=== PATIENT | female | born 1935 | race Caucasian/White ===

== ENCOUNTER → 2017-12-14 | Outpatient (CLI) | payer OTHER | END | disposition home or self-care (01) | LOC: SHCH 09:16 | PROVIDERS: ATTEND Internal Medicine Cardiovascular Disease | DX: I35.1 Nonrheumatic aortic (valve) insufficiency (principal) | CPT/HCPCS: 93306 ==

== ENCOUNTER 2018-08-27 02:58 | Inpatient (IN) | payer OTHER | END 2018-09-08 17:22 | LOC: EDH 02:58 → 2CH 08-28 07:50 → 2DH 09-04 18:37 → EDHIP 05:12 → 2BH 08-28 12:05 → 2DH 13:44 | PROC: 5A1955Z Respiratory Ventilation, Greater than 96 Consecutive Hours (ICD-10-PCS; principal; ~2018-08-27) | PROC: 0BH17EZ Insertion of Endotracheal Airway into Trachea, Via Natural or Artificial Opening (ICD-10-PCS; ~2018-08-27) | DX: A41.9 Sepsis, unspecified organism (principal); R65.21 Severe sepsis with septic shock; J12.1 Respiratory syncytial virus pneumonia; J96.21 Acute and chronic respiratory failure with hypoxia; J96.22 Acute and chronic respiratory failure with hypercapnia; I50.43 Acute on chronic combined systolic (congestive) and diastolic (congestive) heart failure; J44.1 Chronic obstructive pulmonary disease with (acute) exacerbation; E87.2 Acidosis; Z99.11 Dependence on respirator [ventilator] status; J44.0 Chronic obstructive pulmonary disease with (acute) lower respiratory infection; I47.2 Ventricular tachycardia; I13.0 Hypertensive heart and chronic kidney disease with heart failure and stage 1 through stage 4 chronic kidney disease, or unspecified chronic kidney disease; R06.03 Acute respiratory distress; R53.81 Other malaise; I48.91 Unspecified atrial fibrillation; I25.10 Atherosclerotic heart disease of native coronary artery without angina pectoris ==

== ENCOUNTER 2018-11-08 13:35 | Inpatient (IN) | payer OTHER ==
[~2018-11-08] VITALS: Ht 160 cm; Wt 46.5 kg
[~2018-11-08 13:35] MED LIST: APIX2.5T PO; BUDE0.5A3 IH; CARV3.1262 PO; CEPH500C2 PO; CILO100T PO; FURO20TA6 PO; IPRA3AMP24 IH; LEVO75 PO; LISI-617 PO; MINE60OI TP; PRED20B PO; SENN8.6T32 NG; THEO400T3 PO
[2018-11-08] MEDS ORDERED: IPRATROPIUM/ALBUTEROL SULFATE 3 ML SOLUTION IH ONE ×2 (13:40→15:24)
[2018-11-08 13:51] LABS: ABG BASE EXCESS -1.4 mmol/L (-2.0-3.0); ABG HCO3 21.6 mmol/L (21.0-28.0); ABG OXYGEN SATURATION 97.6 % (95.0-99.0); ABG PCO2 32 mmHg (32-45)
[2018-11-08 14:09] LABS: BASOPHILS % (AUTO) 0.9 % (0.0-5.0); CREATININE 0.9 mg/dL (0.5-1.5); EOSINOPHILS % (AUTO) 0.1 % (0.0-8.0); HEMATOCRIT 44.4 % (36-48); LYMPHOCYTES % (AUTO) 7.9 % (21.0-51.0); MEAN CORPUSCULAR HEMOGLOBIN 30.5 pg (27.0-33.0); MEAN CORPUSCULAR HGB CONC 32.3 g/dL (32.0-36.0); MEAN CORPUSCULAR VOLUME 94.5 fL (79-99); MONOCYTES % (AUTO) 7.8 % (3.0-13.0); NEUTROPHILS % (AUTO) 83.3 % (40.0-77.0); NUCLEATED RED BLOOD CELLS 0.1 % (0.0-0.19); PLATELET COUNT (AUTO) 230 K/uL (130-400); POTASSIUM 3.7 mmol/L (3.5-5.1); RED CELL DISTRIBUTION WIDTH 16.5 % (11.0-15.5); WHITE BLOOD COUNT (AUTO) 11.6 K/uL (4.8-10.8)
[2018-11-08 14:19] LABS: ALBUMIN 2.7 g/dL (3.5-5.0); BILIRUBIN,TOTAL 0.7 mg/dL (0.2-1.0); TOTAL PROTEIN, SERUM 6.8 g/dL (6.0-8.3)
[2018-11-08 14:24] LABS: INR 1.12 (0.85-1.15); PARTIAL THROMBOPLASTIN TIME 34.6 SEC (26.3-35.5); PROTHROMBIN TIME 11.7 SEC (9.6-11.6)
[2018-11-08] MEDS ORDERED: DILTIAZEM HCL 125 MG/25 ML VIAL IV ONE (15:17)
[2018-11-08] MEDS ORDERED: METHYLPREDNISOLONE SOD SUCC 125MG/2ML VIAL ONE (15:20)
[2018-11-08] MEDS ORDERED: LEVOFLOXACIN 500 MG/D5W 100 ML 100 ML IV SCH (17:15)
[2018-11-08] MEDS ORDERED: LACTULOSE 20 GM/30 ML UDCUP PO PRN (17:15)
[2018-11-08] MEDS ORDERED: ACETAMINOPHEN 325 MG TAB PO PRN (17:15)
[2018-11-08] MEDS ORDERED: HYDRALAZINE HCL 20 MG/ML VIAL IV PRN (17:15)
[2018-11-08] MEDS ORDERED: ONDANSETRON HCL 4 MG/2 ML VIAL IV PRN (17:15)
[2018-11-08] MEDS: METHYLPREDNISOLONE SOD SUCC 125MG/2ML VIAL IV SCH (17:15)
[2018-11-08] MEDS ORDERED: DILTIAZEM HCL 125 MG/25 ML 125 MG in SODIUM CHLORIDE 0.9% 100 ML IV SCH (17:15)
[2018-11-08 17:35] LABS: MAGNESIUM 1.8 mg/dL (1.80-2.40); PHOSPHORUS 4.5 mg/dL (2.5-4.9)
[2018-11-08 17:46] LABS: HEMOGLOBIN A1C 5.9 % (4.0-6.0)
[2018-11-08] MEDS: SODIUM CHLORIDE 3% FOR INHALATION 4 ML/AMP VIAL.NEB IH SCH ×2 (19:08→23:14)
[2018-11-08] MEDS ORDERED: LEVOFLOXACIN 500 MG/D5W 100 ML 100 ML ONE (19:34)
[2018-11-08] MEDS ORDERED: FAMOTIDINE/PF 20 MG/2 ML VIAL IV SCH (21:00)
[2018-11-08] MEDS: METOPROLOL TARTRATE 25 MG TAB PO SCH (22:03)
[2018-11-08 23:00] VITALS: BP_SYST 157; BP_SYST 98; BP_DIAS 60; BP_DIAS 85
[2018-11-08 23:16] VITALS: BP 102/59
[2018-11-09] MEDS: METHYLPREDNISOLONE SOD SUCC 125MG/2ML VIAL IV SCH (01:31)
[2018-11-09] MEDS ORDERED: POTA20TA82 PO (02:30)
[2018-11-09] MEDS ORDERED: CARAL PO (02:31)
[2018-11-09] MEDS ORDERED: MELA1TAB17 PO (02:43)
[2018-11-09] MEDS ORDERED: TYL3 PO (02:45)
[2018-11-09] MEDS ORDERED: LACT10SO9 PO (02:51)
[2018-11-09] MEDS ORDERED: SPIR25TA6 PO (02:51)
[2018-11-09] MEDS ORDERED: ASCO500T10 PO (02:51)
[2018-11-09] MEDS ORDERED: ZINC220 PO (02:51)
[2018-11-09] MEDS ORDERED: SENN8.6T32 PO (02:51)
[2018-11-09] MEDS ORDERED: ACET325C5 PO (02:51)
[2018-11-09] MEDS ORDERED: LEVO500T2 PO (02:53)
[2018-11-09] MEDS ORDERED: ONDA8TAB5 PO (02:53)
[2018-11-09] MEDS ORDERED: ALBUHFA IH (02:55)
[2018-11-09 03:00] VITALS: BP 87/59
[2018-11-09] MEDS ORDERED: IPRATROPIUM/ALBUTEROL SULFATE 3 ML SOLUTION IH ONE ×3 (06:27→12:30)
[2018-11-09] MEDS: SODIUM CHLORIDE 3% FOR INHALATION 4 ML/AMP VIAL.NEB IH SCH (06:29)
[2018-11-09 07:43] VITALS: BP 101/61
[2018-11-09] MEDS ORDERED: LEVOFLOXACIN 500 MG/D5W 100 ML 100 ML IV SCH (09:00)
[2018-11-09] MEDS ORDERED: ENOXAPARIN SODIUM 40 MG/0.4 ML SYRINGE SQ SCH (09:00)
[2018-11-09] MEDS: METOPROLOL TARTRATE 25 MG TAB PO SCH ×2 (09:25→20:58)
[2018-11-09] MEDS: FAMOTIDINE 20MG TAB 20 MG TAB PO SCH ×2 (09:25→20:59)
--- NOTE | 2018-11-09 10:45 | NUR ---
DYSPHAGIA EVAL COMPLETED. -S/S OF ASPIRATION. RECOMMEND MECHANICAL SOFT/ CHOPPED, THIN LIQUIDS; PILLS WHOLE WITH LIQUIDS. PATIENT INFORMATION: Pt IS AN 83 YEAR OLD FEMALE REFERRED FOR A BEDSIDE DYSPHAGIA EVAL SECONDARY TO HISTORY OF DYSPHAGIA. Pt COOPERATIVE DURING THE EVALUATION. ELECTRICAL ENGINEERING TECHNICIAN UTILIZED Power OLEDs BOARD SECONDARY TO SEVERELY IMPAIRED HEARING ABILITY. Pt CURRENTLY ADMITTED SECONDARY TO ACCURACY COPD EXACERBATION. 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 MBSS ON 09/06 WITH RECOMMENDATIONS OF HONEY-THICK LIQUIDS. Pt REPORTS SHE PARTICIPATED IN THERAPY AT A LOCAL SNIFF AND WAS ABLE TO RETURN TO THIN LIQUIDS. 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 RECOMMENDATIONS: 1. MECHANICAL SOFT/CHOPPED, THIN LIQUIDS; PILLS WHOLE WITH LIQUIDS. 2. COMPENSATORY STRATEGIES: *SEATED AT 90 DEGREES *SLOW RATE *NO STRAW G-CODES SWALLOWING: [id number] Addendum: 11/09/18 at [address] Amended: Links added.
[2018-11-09 11:38] VITALS: BP 126/51
[2018-11-09] MEDS ORDERED: SODIUM CHLORIDE 3% FOR INHALATION 4 ML/AMP VIAL.NEB IH SCH (12:00)
[2018-11-09] MEDS: IPRATROPIUM/ALBUTEROL SULFATE 3 ML SOLUTION IH SCH ×3 (13:21→21:33)
[2018-11-09] MEDS ORDERED: METHYLPREDNISOLONE SOD SUCC 125MG/2ML VIAL IV SCH (14:00)
--- NOTE | 2018-11-09 14:07 | NUR ---
DC PLAN VISITED WITH PATIENT. PATIENT HEARD OF HEARING USES A WHITE BOARD. SPOKE TO PATIENT GOT MARK FOR [facility] D[facility] TO GO BACK. PATIENT GIVEN BPCI INFO. Addendum: 11/09/18 at 1408 by LALIT JAY RN CM Amended: Links added.
[2018-11-09] MEDS: METHYLPREDNISOLONE SOD SUCC 40MG/ML 1ML IVP SCH ×2 (14:46→21:01)
[2018-11-09 16:19] VITALS: BP 128/60
[2018-11-09 19:00] VITALS: BP 99/66
--- NOTE | 2018-11-09 19:30 | NUR ---
Received bedside report ,unable to collect sputum and urine specimen.Pt. is a Chronic afib
[2018-11-09 22:26] LABS: APPEARANCE,URINE Clear (CLEAR); BILIRUBIN,URINE Negative (NEGATIVE); COLOR,URINE Yellow (YELLOW); GLUCOSE, URINE (UA) Negative (NEGATIVE); KETONES,URINE Negative (NEGATIVE); LEUKOCYTE ESTERASE ,URINE Negative (NEGATIVE); NITRATE,URINE Negative (NEGATIVE); OCCULT BLOOD,URINE Negative (NEGATIVE); PROTEIN,URINE Negative (NEGATIVE); UROBILINOGEN,URINE 0.2 mg/dL (0.2-1.0)
[2018-11-09 23:00] VITALS: BP_SYST 111; BP_SYST 138; BP_DIAS 64; BP_DIAS 85
[2018-11-10] MEDS: IPRATROPIUM/ALBUTEROL SULFATE 3 ML SOLUTION IH SCH ×6 (01:52→21:45)
[2018-11-10 03:00] VITALS: BP 103/60
--- NOTE | 2018-11-10 03:18 | NUR ---
Pt. c/o severe leg pain,she said plain tylenol was not working.GHOST WRITER [facility] was called and notified received order to give Tylenol # 3 1 tab p.o TID as taken from her home meds.
[2018-11-10] MEDS ORDERED: ACETAMINOPHEN-CODEINE 300/30MG TAB ONE (03:29)
[2018-11-10] MEDS: METHYLPREDNISOLONE SOD SUCC 40MG/ML 1ML IVP SCH ×3 (05:31→21:08)
[2018-11-10 07:31] VITALS: BP 107/56
[2018-11-10] MEDS ORDERED: LACTULOSE 20 GM/30 ML UDCUP PO PRN (08:15)
[2018-11-10] MEDS ORDERED: ACETAMINOPHEN 325 MG TAB PO PRN (08:15)
[2018-11-10] MEDS ORDERED: ACETAMINOPHEN-CODEINE 300/30MG TAB PO SCH (09:00)
[2018-11-10] MEDS: ZINC SULFATE 220 CAPSULE PO SCH (09:00)
[2018-11-10] MEDS: METOPROLOL TARTRATE 25 MG TAB PO SCH ×2 (09:30→21:09)
[2018-11-10] MEDS: APIXABAN 2.5 MG TABLET PO SCH ×2 (09:35→21:08)
[2018-11-10] MEDS: SPIRONOLACTONE 25 MG TAB PO SCH (09:35)
[2018-11-10] MEDS: SENNOSIDES 8.6 MG TABLET PO SCH (09:35)
[2018-11-10] MEDS: ASCORBIC ACID 500 MG TAB PO SCH ×2 (09:36→21:08)
[2018-11-10] MEDS: ONDANSETRON ODT 4 MG TAB PO SCH ×3 (09:36→21:08)
[2018-11-10] MEDS: FAMOTIDINE 20MG TAB 20 MG TAB PO SCH ×2 (09:36→21:09)
[2018-11-10] MEDS: LEVOFLOXACIN 500 MG TABLET PO SCH (09:37)
[2018-11-10] MEDS: FUROSEMIDE 20 MG TABLET PO SCH (09:37)
[2018-11-10] MEDS: POTASSIUM CHLORIDE 20 MEQ ERTAB PO SCH (09:38)
[2018-11-10] MEDS ORDERED: IPRATROPIUM/ALBUTEROL SULFATE 3 ML SOLUTION IH SCH (10:00)
--- NOTE | 2018-11-10 11:05 | NUR ---
FOLLOW-UP COMPLETED. PT TOLERATING CURRENT DIET AND ABLE TO TAKE SMALL PILLS WHOLE AND LARGE PILLS CRUSHED WITH APPLESAUCE. RECOMMEND CONTINUED P.O. OF MECHANICAL SOFT/CHOPPED, THIN LIQUIDS WITH PILLS CRUSHED. Addendum: 11/10/18 at 1106 by AMERICO ACEVEDO, [facility] Amended: Links added.
[2018-11-10 11:09] VITALS: BP 115/48
[2018-11-10] MEDS: SUCRALFATE 1 GM/10 ML PO SCH ×2 (11:30→18:07)
[2018-11-10] MEDS ORDERED: METHYLPREDNISOLONE SOD SUCC 40MG/ML 1ML IVP SCH (12:45)
--- NOTE | 2018-11-10 12:48 | NUR ---
DC PLAN SENT UPDATES TO FACILITY AND INSURANCE. NEW SNF REFERRAL. Addendum: 11/10/18 at 1249 by LALIT JAY RN CM Amended: Links added.
[2018-11-10 14:40] LABS: ABG BASE EXCESS 0.6 mmol/L (-2.0-3.0); ABG HCO3 25.3 mmol/L (21.0-28.0); ABG OXYGEN SATURATION 98.9 % (95.0-99.0); ABG PCO2 41 mmHg (32-45)
[2018-11-10 15:53] VITALS: BP 132/82
[2018-11-10] MEDS: BUDESONIDE 0.5 MG/2 ML INH IH SCH (17:40)
[2018-11-10 20:09] VITALS: BP 117/65
[2018-11-10] MEDS: MELATONIN PO SCH (21:00)
[2018-11-10] MEDS: PYRIDOXINE HCL PO SCH (21:00)
[2018-11-11 00:11] VITALS: BP 120/58
[2018-11-11] MEDS: IPRATROPIUM/ALBUTEROL SULFATE 3 ML SOLUTION IH SCH ×4 (01:28→14:12)
[2018-11-11 03:53] LABS: BASOPHILS % (AUTO) 0.2 % (0.0-5.0); HEMATOCRIT 41.4 % (36-48); LYMPHOCYTES % (AUTO) 5.6 % (21.0-51.0); MEAN CORPUSCULAR HEMOGLOBIN 31.5 pg (27.0-33.0); MEAN CORPUSCULAR HGB CONC 33.8 g/dL (32.0-36.0); MEAN CORPUSCULAR VOLUME 93.4 fL (79-99); MONOCYTES % (AUTO) 8.9 % (3.0-13.0); NEUTROPHILS % (AUTO) 85.3 % (40.0-77.0); PLATELET COUNT (AUTO) 198 K/uL (130-400); RED BLOOD CELL COUNT(AUTO) 4.44 MIL/uL (4.00-5.50); RED CELL DISTRIBUTION WIDTH 15.8 % (11.0-15.5); WHITE BLOOD COUNT (AUTO) 12.6 K/uL (4.8-10.8)
[2018-11-11 04:09] VITALS: BP 107/64
[2018-11-11 04:18] LABS: CREATININE 1.3 mg/dL (0.5-1.5); MAGNESIUM 2.3 mg/dL (1.80-2.40); PHOSPHORUS 4.1 mg/dL (2.5-4.9); POTASSIUM 5.9 mmol/L (3.5-5.1)
[2018-11-11 04:50] LABS: B-TYPE NATRIURETIC PEPTIDE 168 pg/mL (0-100)
[2018-11-11] MEDS ORDERED: LEVOTHYROXINE 75 MCG TABLET ONE (06:07)
[2018-11-11] MEDS: LEVOTHYROXINE 75 MCG TABLET PO SCH (06:11)
[2018-11-11] MEDS: METHYLPREDNISOLONE SOD SUCC 40MG/ML 1ML IVP SCH ×3 (06:12→21:16)
[2018-11-11] MEDS: SUCRALFATE 1 GM/10 ML PO SCH ×3 (06:12→17:33)
[2018-11-11] MEDS: BUDESONIDE 0.5 MG/2 ML INH IH SCH ×2 (06:26→18:13)
[2018-11-11 07:13] VITALS: BP 137/64
[2018-11-11] MEDS: POTASSIUM CHLORIDE 20 MEQ ERTAB PO SCH (07:26)
[2018-11-11] MEDS: ASCORBIC ACID 500 MG TAB PO SCH ×2 (07:26→21:16)
[2018-11-11] MEDS: SENNOSIDES 8.6 MG TABLET PO SCH (07:26)
[2018-11-11] MEDS: FAMOTIDINE 20MG TAB 20 MG TAB PO SCH ×2 (07:26→21:16)
[2018-11-11] MEDS: LEVOFLOXACIN 500 MG TABLET PO SCH (07:26)
[2018-11-11] MEDS: SPIRONOLACTONE 25 MG TAB PO SCH (07:26)
[2018-11-11] MEDS: APIXABAN 2.5 MG TABLET PO SCH ×2 (07:26→21:16)
[2018-11-11] MEDS: ONDANSETRON ODT 4 MG TAB PO SCH ×3 (07:27→21:19)
[2018-11-11] MEDS: METOPROLOL TARTRATE 25 MG TAB PO SCH ×2 (07:27→21:16)
[2018-11-11] MEDS: ZINC SULFATE 220 CAPSULE PO SCH (07:27)
[2018-11-11] MEDS: FUROSEMIDE 20 MG TABLET PO SCH (07:27)
--- NOTE | 2018-11-11 08:00 | NUR ---
ASSESSMENT PT IS AAOX4 DENIES CP DENIES SOB AT REST. DENIES NV. NO COMPLAINTS VERBALIZED AT THIS TIME. WE COMMUNICATE WITH ERASE BOARD WHEN SHE CANNOT HEAR. CALL LIGHT WITHIN REACH.
[2018-11-11 11:08] VITALS: BP_SYST 109; BP_SYST 97; BP_DIAS 50; BP_DIAS 53
--- NOTE | 2018-11-11 13:31 | NUR ---
DYSPHAGIA FOLLOW-UP COMPLETE. PATIENT WAS SEEN AT BEDSIDE. PATIENT ALERT AND COOPERATIVE. PATIENT WITH SEVERE HEARING LOSS, BILATERALLY, REQUIRES COMMUNICATION PARTNER TO WRITE MESSAGES ON WHITE BOARD. PATIENT TOLERATING RECOMMENDED DIET: MECHANICAL SOFT CHOPPED WITH THIN LIQUIDS, WELL. NO S/S OF ASPIRATION/PENETRATION OBSERVED DURING MEAL CONSUMPTION. RECOMMENDED FOR PATIENT TO CONTINUE WITH MODIFIED DYSPHAGIA DIET. SITE SAFETY REPRESENTATIVE WILL CONTINUE TO FOLLOW-UP WITH PATIENT. Addendum: 11/11/[address] ANUPAM SALAZAR Amended: Links added.
[2018-11-11] MEDS ORDERED: DOXYCYCLINE 100MG+NS 250ML 250 ML IV SCH (15:15)
--- NOTE | 2018-11-11 17:00 | NUR ---
DR COULTER ROUNDED SAW PATIENT ORDERS RECEIVED CT SCAN DONE
[2018-11-11] MEDS: CEFEPIME HCL 1 GM VIAL IVP SCH ×2 (17:32→23:12)
[2018-11-11] MEDS: IPRATROPIUM 0.5 MG/2.5 ML INH IH SCH ×2 (18:13→21:53)
[2018-11-11 20:08] VITALS: BP 115/59
[2018-11-11] MEDS: MELATONIN PO SCH (21:00)
[2018-11-11] MEDS: PYRIDOXINE HCL PO SCH (21:00)
[2018-11-11] MEDS: OSELTAMIVIR PHOSPHATE 75 MG CAP PO SCH (21:16)
[2018-11-12] VITALS (7 sets, daily range): BP systolic 112–141; BP diastolic 55–77
[2018-11-12] MEDS: IPRATROPIUM 0.5 MG/2.5 ML INH IH SCH ×6 (02:09→22:41)
--- NOTE | 2018-11-12 03:57 | NUR ---
PATIENT IS REFUSING TO LET GEM SETTER DRAW MORNING LAB WORK.
[2018-11-12 04:19] LABS: ABG BASE EXCESS 3.4 mmol/L (-2.0-3.0); ABG HCO3 29.3 mmol/L (21.0-28.0); ABG OXYGEN SATURATION 99.1 % (95.0-99.0); ABG PCO2 49 mmHg (32-45)
[2018-11-12] MEDS: LEVOTHYROXINE 75 MCG TABLET PO SCH (05:37)
[2018-11-12] MEDS: METHYLPREDNISOLONE SOD SUCC 40MG/ML 1ML IVP SCH (05:37)
[2018-11-12] MEDS: SUCRALFATE 1 GM/10 ML PO SCH ×3 (05:38→16:31)
[2018-11-12] MEDS: CEFEPIME HCL 1 GM VIAL IVP SCH ×2 (05:38→13:38)
[2018-11-12] MEDS: BUDESONIDE 0.5 MG/2 ML INH IH SCH ×2 (06:18→18:40)
[2018-11-12] MEDS: FUROSEMIDE 20 MG TABLET PO SCH (07:22)
[2018-11-12] MEDS: METOPROLOL TARTRATE 25 MG TAB PO SCH ×2 (07:22→20:44)
[2018-11-12] MEDS: ASCORBIC ACID 500 MG TAB PO SCH ×2 (07:22→20:43)
[2018-11-12] MEDS: SENNOSIDES 8.6 MG TABLET PO SCH (07:22)
[2018-11-12] MEDS: APIXABAN 2.5 MG TABLET PO SCH ×2 (07:23→20:43)
[2018-11-12] MEDS: FAMOTIDINE 20MG TAB 20 MG TAB PO SCH ×2 (07:23→20:43)
[2018-11-12] MEDS: ONDANSETRON ODT 4 MG TAB PO SCH ×3 (07:23→20:47)
[2018-11-12] MEDS: ZINC SULFATE 220 CAPSULE PO SCH (07:23)
[2018-11-12] MEDS: OSELTAMIVIR PHOSPHATE 75 MG CAP PO SCH ×2 (07:23→20:43)
--- NOTE | 2018-11-12 08:00 | NUR ---
ASSESSMENT PT IS AAOX3 DENIES CP DENIES SOB DENIES NV NO COMPLAINTS. SITTING UPRIGHT IN BED. CALL LIGHT WITHIN REACH, AM MEDS GIVEN AND TOLERATED. DOOR AJAR BLINDS OPEN.
[2018-11-12 10:07] LABS: BASOPHILS % (AUTO) 0.1 % (0.0-5.0); LYMPHOCYTES % (AUTO) 7.1 % (21.0-51.0); MEAN CORPUSCULAR HEMOGLOBIN 31.1 pg (27.0-33.0); MEAN CORPUSCULAR HGB CONC 32.9 g/dL (32.0-36.0); MEAN CORPUSCULAR VOLUME 94.5 fL (79-99); MONOCYTES % (AUTO) 3.8 % (3.0-13.0); PLATELET COUNT (AUTO) 214 K/uL (130-400); RED BLOOD CELL COUNT(AUTO) 4.97 MIL/uL (4.00-5.50); RED CELL DISTRIBUTION WIDTH 16.2 % (11.0-15.5); WHITE BLOOD COUNT (AUTO) 10.4 K/uL (4.8-10.8)
[2018-11-12 10:13] LABS: INR 1.07 (0.85-1.15); PARTIAL THROMBOPLASTIN TIME 37.2 SEC (26.3-35.5); PROTHROMBIN TIME 11.2 SEC (9.6-11.6)
[2018-11-12 10:28] LABS: ALBUMIN 2.6 g/dL (3.5-5.0); BILIRUBIN,TOTAL 0.7 mg/dL (0.2-1.0); CREATININE 1.1 mg/dL (0.5-1.5); MAGNESIUM 2.3 mg/dL (1.80-2.40); PHOSPHORUS 3.8 mg/dL (2.5-4.9); POTASSIUM 4.5 mmol/L (3.5-5.1); TOTAL PROTEIN, SERUM 6.7 g/dL (6.0-8.3)
--- NOTE | 2018-11-12 10:30 | NUR ---
HUGH CRUZ PRODUCT DEVELOPMENT CARPENTER ROUNDED ORDERS RECEIVED
[2018-11-12] MEDS ORDERED: METHYLPREDNISOLONE SOD SUCC 40MG/ML 1ML IVP SCH (14:00)
--- NOTE | 2018-11-12 15:30 | NUR ---
DR COULTER ROUNDED AWARE THAT PT REFUSED RECHECK LACTIC ACID.
[2018-11-12] MEDS: PYRIDOXINE HCL PO SCH (19:28)
[2018-11-12] MEDS: MELATONIN PO SCH (19:28)
[2018-11-12] MEDS ORDERED: DOXYCYCLINE HYCLATE 100 MG TABLET PO SCH (21:00)
[2018-11-12] MEDS: ACETAMINOPHEN-CODEINE 300/30MG TAB PO PRN (23:57)
[2018-11-13] MEDS: IPRATROPIUM 0.5 MG/2.5 ML INH IH SCH ×4 (01:58→13:37)
[2018-11-13 03:44] LABS: BASOPHILS % (AUTO) 0.1 % (0.0-5.0); HEMATOCRIT 42.6 % (36-48); LYMPHOCYTES % (AUTO) 14.2 % (21.0-51.0); MEAN CORPUSCULAR HEMOGLOBIN 31.4 pg (27.0-33.0); MEAN CORPUSCULAR HGB CONC 33.5 g/dL (32.0-36.0); MEAN CORPUSCULAR VOLUME 93.9 fL (79-99); MONOCYTES % (AUTO) 7.4 % (3.0-13.0); NEUTROPHILS % (AUTO) 78.3 % (40.0-77.0); NUCLEATED RED BLOOD CELLS 0.1 % (0.0-0.19); PLATELET COUNT (AUTO) 150 K/uL (130-400); RED BLOOD CELL COUNT(AUTO) 4.54 MIL/uL (4.00-5.50); RED CELL DISTRIBUTION WIDTH 15.8 % (11.0-15.5); WHITE BLOOD COUNT (AUTO) 6.8 K/uL (4.8-10.8)
[2018-11-13 04:00] VITALS: BP 127/72
[2018-11-13 04:21] LABS: POTASSIUM 4.6 mmol/L (3.5-5.1)
[2018-11-13] MEDS: LEVOTHYROXINE 75 MCG TABLET PO SCH (05:59)
[2018-11-13] MEDS: SUCRALFATE 1 GM/10 ML PO SCH ×2 (05:59→12:22)
[2018-11-13] MEDS: BUDESONIDE 0.5 MG/2 ML INH IH SCH (06:34)
[2018-11-13 07:37] VITALS: BP 136/79
[2018-11-13] MEDS ORDERED: PREDNISONE 20 MG TABLET PO SCH (09:00)
[2018-11-13] MEDS: SENNOSIDES 8.6 MG TABLET PO SCH (09:11)
[2018-11-13] MEDS: ASCORBIC ACID 500 MG TAB PO SCH (09:11)
[2018-11-13] MEDS: METOPROLOL TARTRATE 25 MG TAB PO SCH (09:11)
[2018-11-13] MEDS: ONDANSETRON ODT 4 MG TAB PO SCH ×2 (09:11→13:55)
[2018-11-13] MEDS: APIXABAN 2.5 MG TABLET PO SCH (09:11)
[2018-11-13] MEDS: OSELTAMIVIR PHOSPHATE 75 MG CAP PO SCH (09:12)
[2018-11-13] MEDS: FAMOTIDINE 20MG TAB 20 MG TAB PO SCH (09:12)
[2018-11-13] MEDS: FUROSEMIDE 20 MG TABLET PO SCH (09:12)
[2018-11-13] MEDS: ACETAMINOPHEN-CODEINE 300/30MG TAB PO PRN (09:22)
--- NOTE | 2018-11-13 09:30 | NUR ---
GIVEN SCHEDULED MEDS---PT PREFERRED TO HAVE THEM CRUSHED. INFORMED PT THAT SPEECH THERAPIST ORDERED TO HAVE PILLS WHOLE AND WITH THIN LIQUIDS. CONTINUES TO REQUEST MEDS CRUSHED. DONE AND TOLERATED WELL.
[2018-11-13 11:29] VITALS: BP 111/57
--- NOTE | 2018-11-13 15:30 | NUR ---
FAXED PAPERWORK TO [facility] ( [phone]) AND SPOKE WITH HAFSA--SHE STATED NURSE WILL BE CALLING ME BACK FOR REPORT.
[2018-11-13 15:32] VITALS: BP 142/87
--- NOTE | 2018-11-13 16:45 | NUR ---
REPORTED CALLED TO MICKI COOPER LVN @ [facility].
--- NOTE | 2018-11-13 17:33 | NUR ---
PT TAKEN TO [facility] VIA WHEELCHAIR TO [place]. O2 AT 3L NC ON. PERSONAL BELONGINGS WITH PATIENT.
[2018-11-13] MEDS ORDERED: PHARMACY COMMUNICATION MISC SCH (17:45)
== END 2018-11-13 17:35 | DRG 189 ==
LOC: EDH 13:35 → EDHIP 17:06 → 2AH 21:26
PROVIDERS: ADMIT Internal Medicine; ATTEND Internal Medicine
PROC: 5A09357 Assistance with Respiratory Ventilation, Less than 24 Consecutive Hours, Continuous Positive Airway Pressure (ICD-10-PCS; principal; 2018-11-10)
PROC: 5A09357 Assistance with Respiratory Ventilation, Less than 24 Consecutive Hours, Continuous Positive Airway Pressure (ICD-10-PCS; 2018-11-11)
DX: J96.21 Acute and chronic respiratory failure with hypoxia (principal); J44.1 Chronic obstructive pulmonary disease with (acute) exacerbation; I48.92 Unspecified atrial flutter; D68.59 Other primary thrombophilia; E46 Unspecified protein-calorie malnutrition; Z68.1 Body mass index [BMI] 19.9 or less, adult; I13.0 Hypertensive heart and chronic kidney disease with heart failure and stage 1 through stage 4 chronic kidney disease, or unspecified chronic kidney disease; I50.42 Chronic combined systolic (congestive) and diastolic (congestive) heart failure; I48.0 Paroxysmal atrial fibrillation; E03.9 Hypothyroidism, unspecified; E87.5 Hyperkalemia; H91.90 Unspecified hearing loss, unspecified ear; I80.8 Phlebitis and thrombophlebitis of other sites; N18.9 Chronic kidney disease, unspecified; Z66 Do not resuscitate; Z77.22 Contact with and (suspected) exposure to environmental tobacco smoke (acute) (chronic); Z99.81 Dependence on supplemental oxygen; Z91.018 Allergy to other foods; Z91.011 Allergy to milk products; Z88.0 Allergy status to penicillin; Z88.8 Allergy status to other drugs, medicaments and biological substances; Z86.72 Personal history of thrombophlebitis
CPT/HCPCS: 36415; 36600; 71045; 71250; 80048; 80053; 81003; 82550; 82803; 83036; 83605; 83735; 83874; 83880; 84100; 84132; 84484; 85025; 85610; 85730; 87040; 87077; 87088; 87186; 92507; 92610; 93005; 93306; 94640; 94660; 94664; 94667; 94668; 97039; G0378; J0692; J1650; J1956; J2920; J2930; J3490

== ENCOUNTER → 2019-01-01 | Outpatient (CLI) | payer MEDICARE ==
[~2019-01-01] MED LIST changes: +ACET325C5 PO; +ALBUHFA IH; +ASCO500T10 PO; +CARAL PO; -CARV3.1262 PO; -CEPH500C2 PO; -CILO100T PO; +LACT10SO9 PO; +LEVO500T2 PO; -LISI-617 PO; +MELA1TAB17 PO; -MINE60OI TP; +ONDA8TAB5 PO; +POTA20TA82 PO; -PRED20B PO; -SENN8.6T32 NG; +SENN8.6T32 PO; +SPIR25TA6 PO; -THEO400T3 PO; +TYL3 PO; +ZINC220 PO
== END | disposition home or self-care (01) ==
LOC: SHCH 10:00
PROVIDERS: ATTEND Internal Medicine Cardiovascular Disease
DX: I08.0 Rheumatic disorders of both mitral and aortic valves (principal); I25.2 Old myocardial infarction
CPT/HCPCS: 93306

== ENCOUNTER 2019-05-29 09:07 | Inpatient (IN) | payer MEDICARE ==
[~2019-05-29] VITALS: Ht 165.1 cm; Wt 52.3 kg
[~2019-05-29 09:07] MED LIST changes: -ACET325C5 PO; +ACET325C6 PO
[2019-05-29] MEDS ORDERED: METHYLPREDNISOLONE SOD SUCC 40MG/ML 1ML ONE ×2 (09:39→18:00)
[2019-05-29] MEDS ORDERED: ZOSYN 3.375GM+NS 50ML 50 ML IV ONE (09:39)
[2019-05-29] MEDS ORDERED: IPRATROPIUM/ALBUTEROL SULFATE 3 ML SOLUTION IH ONE ×2 (10:03→13:34)
[2019-05-29 10:07] LABS: BASOPHILS % (AUTO) 0.1 % (0.0-5.0); EOSINOPHILS % (AUTO) 0.1 % (0.0-8.0); HEMATOCRIT 44.1 % (36-48); LYMPHOCYTES % (AUTO) 5.5 % (21.0-51.0); MEAN CORPUSCULAR HEMOGLOBIN 31.6 pg (27.0-33.0); MEAN CORPUSCULAR HGB CONC 34.1 g/dL (32.0-36.0); MEAN CORPUSCULAR VOLUME 92.8 fL (79-99); MONOCYTES % (AUTO) 8.1 % (3.0-13.0); NEUTROPHILS % (AUTO) 86.2 % (40.0-77.0); PLATELET COUNT (AUTO) 255 K/uL (130-400); RED BLOOD CELL COUNT(AUTO) 4.75 MIL/uL (4.00-5.50); RED CELL DISTRIBUTION WIDTH 13.9 % (11.0-15.5); WHITE BLOOD COUNT (AUTO) 21.1 K/uL (4.8-10.8)
[2019-05-29 10:12] LABS: CARBON DIOXIDE 27 mmol/L (21-32); CHLORIDE 98 mmol/L (101-111); CREATININE 0.9 mg/dL (0.5-1.5); GLOMERULAR FILTR. RATE CALC 64 mL/min (>60); GLUCOSE,RANDOM 114 mg/dL (70-105); POTASSIUM 4.1 mmol/L (3.5-5.1); SODIUM SERUM 135 mmol/L (136-145); UREA NITROGEN, BLOOD 21 mg/dL (7-18)
[2019-05-29 10:23] LABS: ALANINE AMINOTRANSFERASE 7 U/L (12-78); ALBUMIN 2.4 g/dL (3.5-5.0); ASPARTATE AMINOTRANSFERASE 15 U/L (10-37); BILIRUBIN,TOTAL 2.1 mg/dL (0.2-1.0); CREATINE KINASE, TOTAL 27 U/L (21-232); MYOGLOBIN 63 ng/mL (10-92); TOTAL PROTEIN, SERUM 7.2 g/dL (6.0-8.3)
[2019-05-29 10:24] LABS: APPEARANCE,URINE Clear (CLEAR); BILIRUBIN,URINE Negative (NEGATIVE); COLOR,URINE Dark Yellow (YELLOW); GLUCOSE, URINE (UA) Negative (NEGATIVE); KETONES,URINE Negative (NEGATIVE); LEUKOCYTE ESTERASE ,URINE Small (NEGATIVE); NITRATE,URINE Negative (NEGATIVE); OCCULT BLOOD,URINE Negative (NEGATIVE); PROTEIN,URINE Negative (NEGATIVE)
[2019-05-29 10:34] LABS: ABG BASE EXCESS 1.6 mmol/L (-2.0-3.0); ABG HCO3 25.4 mmol/L (21.0-28.0); ABG OXYGEN SATURATION 98.1 % (95.0-99.0); ABG PCO2 38 mmHg (32-45)
[2019-05-29 10:37] LABS: TROPONIN I < 0.04 ng/mL (0.00-0.06)
[2019-05-29 10:38] LABS: BACTERIA,URINE Rare /HPF (None Seen); RBC,URINE None Seen /HPF (0-1); SQUAMOUS EPITHELIAL CELL,UR 0-2 /HPF (0-2); WBC,URINE 0-1 /HPF (0-1)
[2019-05-29 10:46] LABS: INR 1.14 (0.85-1.15); PARTIAL THROMBOPLASTIN TIME 30.9 SEC (26.3-35.5); PROTHROMBIN TIME 11.9 SEC (9.6-11.6)
[2019-05-29] MEDS: METHYLPREDNISOLONE SOD SUCC 40MG/ML 1ML IVP SCH ×2 (13:00→21:00)
[2019-05-29] MEDS: GUAIFENESIN-DM 200/20 MG 10 ML PO SCH ×2 (13:00→19:00)
[2019-05-29] MEDS ORDERED: ZOSYN 3.375GM+NS 50ML 50 ML IV SCH (13:15)
[2019-05-29] MEDS ORDERED: LACTULOSE 20 GM/30 ML UDCUP PO PRN (13:15)
[2019-05-29] MEDS ORDERED: ONDANSETRON HCL 4 MG/2 ML VIAL IV PRN (13:15)
[2019-05-29] MEDS ORDERED: ACETAMINOPHEN 325 MG TAB PO PRN (13:15)
[2019-05-29] MEDS: LEVOFLOXACIN 500 MG/D5W 100 ML 100 ML IV SCH (13:30)
[2019-05-29] MEDS ORDERED: HYDROCODONE/ACETAMINOPHEN 5/325 MG TAB ONE (13:49)
[2019-05-29] MEDS ORDERED: LEVOFLOXACIN 500 MG/D5W 100 ML 100 ML ONE (15:15)
[2019-05-29] MEDS ORDERED: IPRATROPIUM/ALBUTEROL SULFATE 3 ML SOLUTION IH SCH (18:00)
[2019-05-29] MEDS: APIXABAN 2.5 MG TABLET PO SCH (21:00)
[2019-05-29] MEDS: ASCORBIC ACID 500 MG TAB PO SCH (21:00)
[2019-05-29] MEDS ORDERED: APIXABAN 2.5 MG TABLET PO ONE (21:08)
[2019-05-29] MEDS ORDERED: FAMOTIDINE 20MG TAB 20 MG TAB ONE (21:08)
[2019-05-29] MEDS ORDERED: GUAIFENESIN-CODEINE 5 ML SYRUP ONE (21:09)
[2019-05-29] MEDS ORDERED: GUAIFENESIN-DM 200/20 MG 10 ML ONE (21:15)
[2019-05-29] MEDS: IPRATROPIUM 0.5 MG/2.5 ML INH IH SCH (22:19)
[2019-05-29] MEDS ORDERED: TRAMADOL HCL 50 MG TABLET ONE (23:26)
[2019-05-30] VITALS (7 sets, daily range): BP systolic 92–106; BP diastolic 47–63
[2019-05-30] MEDS: GUAIFENESIN-DM 200/20 MG 10 ML PO SCH ×4 (01:00→21:26)
--- NOTE | 2019-05-30 01:39 | NUR ---
RECEIVED PATIENT TO ROOM, VITALS NOTED. CARDIZEM DRIP OFF AT THIS TIME. HEART RATE 80, CONT A FIB. NOTE BLOOD PRESSURE. PATIENT UNABLE TO HEAR, DRY ERASE BOARD USED FOR COMMUNICATION. PATIENT ORIENTATED TO ROOM AND CALL HEBERT, CALL HEBERT WITHIN REACH.
[2019-05-30] MEDS: IPRATROPIUM 0.5 MG/2.5 ML INH IH SCH ×6 (02:34→21:19)
[2019-05-30] MEDS: HYDROCODONE/ACETAMINOPHEN 5/325 MG TAB PO PRN ×4 (03:26→23:23)
[2019-05-30 04:59] LABS: BASOPHILS % (AUTO) 0.1 % (0.0-5.0); HEMATOCRIT 40.5 % (36-48); LYMPHOCYTES % (AUTO) 4.4 % (21.0-51.0); MEAN CORPUSCULAR HEMOGLOBIN 31.3 pg (27.0-33.0); MEAN CORPUSCULAR HGB CONC 33.8 g/dL (32.0-36.0); MEAN CORPUSCULAR VOLUME 92.6 fL (79-99); MONOCYTES % (AUTO) 1.8 % (3.0-13.0); NEUTROPHILS % (AUTO) 93.7 % (40.0-77.0); PLATELET COUNT (AUTO) 257 K/uL (130-400); RED BLOOD CELL COUNT(AUTO) 4.37 MIL/uL (4.00-5.50); RED CELL DISTRIBUTION WIDTH 13.6 % (11.0-15.5); WHITE BLOOD COUNT (AUTO) 14.5 K/uL (4.8-10.8)
[2019-05-30] MEDS: METHYLPREDNISOLONE SOD SUCC 40MG/ML 1ML IVP SCH ×3 (05:03→21:26)
[2019-05-30 05:06] LABS: POTASSIUM 3.9 mmol/L (3.5-5.1)
[2019-05-30] MEDS: LEVOTHYROXINE 75 MCG TABLET PO SCH (06:17)
[2019-05-30] MEDS: ASCORBIC ACID 500 MG TAB PO SCH ×2 (07:57→21:26)
[2019-05-30] MEDS: POTASSIUM CHLORIDE 20 MEQ ERTAB PO SCH (07:57)
[2019-05-30] MEDS: FUROSEMIDE 20 MG TABLET PO SCH (07:58)
[2019-05-30] MEDS: APIXABAN 2.5 MG TABLET PO SCH ×2 (07:58→21:26)
[2019-05-30] MEDS: FAMOTIDINE 20MG TAB 20 MG TAB PO SCH (07:58)
--- NOTE | 2019-05-30 08:00 | NUR ---
ASSESSMENT PT IS AAOX4 DENIES CP DENIES SOB DENIES NV NO COMPLAINTS, BREATHING PATTERN IS EVEN AND UNLABORED. RESTING IN BED. CALL LIGHT WITHIN REACH.
[2019-05-30 10:51] LABS: ALBUMIN 2.3 g/dL (3.5-5.0); BILIRUBIN,TOTAL 0.9 mg/dL (0.2-1.0); TOTAL PROTEIN, SERUM 6.8 g/dL (6.0-8.3)
[2019-05-30] MEDS ORDERED: GABAPENTIN 100 MG CAPSULE PO PRN (11:00)
[2019-05-30] MEDS: DILTIAZEM HCL 180 MG CAP.SR.24H PO SCH (11:04)
[2019-05-30] MEDS ORDERED: DIATR MEGLU/DIATRIZOATE SODIUM 30 ML BOTTLE ONE (11:20)
--- NOTE | 2019-05-30 11:40 | NUR ---
DR BASILIO ROUNDED ORDERS RECEIVED
--- NOTE | 2019-05-30 11:40 | NUR ---
CARDIOLOGY CONSULT PLACED WITH ANA LUISA [phone]
--- NOTE | 2019-05-30 12:30 | NUR ---
CARDIOLOGY ROUNDED ZEESHAN ANGUIANO ROUNDED
[2019-05-30] MEDS: LEVOFLOXACIN 500 MG/D5W 100 ML 100 ML IV SCH (13:03)
[2019-05-30] MEDS ORDERED: SODIUM CHLORIDE 3% FOR INHALATION 4 ML/AMP VIAL.NEB IH ONE ×2 (14:04→18:07)
--- NOTE | 2019-05-30 17:30 | NUR ---
STATUS EATING DINNER, NO COMPLAINTS, CALL LIGHT WITHIN REACH.
--- NOTE | 2019-05-30 17:42 | NUR ---
GUANAKITO PLAN PATIENT GETTING CHANGED AND BED BATH. CATHLEEN WILL CONTINUE TO FOLLOW. Addendum: 05/30/19 at 1743 by LALIT JAY RN CM Amended: Links added.
[2019-05-30] MEDS: BUDESONIDE 0.5 MG/2 ML INH IH SCH (18:35)
[2019-05-30] MEDS: **HM** MELATONIN 5MG PO SCH (21:00)
[2019-05-31] MEDS: GUAIFENESIN-DM 200/20 MG 10 ML PO SCH ×4 (01:00→20:00)
[2019-05-31] MEDS ORDERED: SODIUM CHLORIDE 3% FOR INHALATION 4 ML/AMP VIAL.NEB IH ONE (01:18)
[2019-05-31] MEDS: IPRATROPIUM 0.5 MG/2.5 ML INH IH SCH ×6 (01:23→21:38)
[2019-05-31 03:54] LABS: BASOPHILS % (AUTO) 0.1 % (0.0-5.0); EOSINOPHILS % (AUTO) 0.1 % (0.0-8.0); HEMATOCRIT 39.6 % (36-48); LYMPHOCYTES % (AUTO) 3.8 % (21.0-51.0); MEAN CORPUSCULAR HGB CONC 33.3 g/dL (32.0-36.0); MEAN CORPUSCULAR VOLUME 93.1 fL (79-99); MONOCYTES % (AUTO) 2.3 % (3.0-13.0); NEUTROPHILS % (AUTO) 93.7 % (40.0-77.0); PLATELET COUNT (AUTO) 264 K/uL (130-400); RED BLOOD CELL COUNT(AUTO) 4.26 MIL/uL (4.00-5.50); RED CELL DISTRIBUTION WIDTH 13.8 % (11.0-15.5); WHITE BLOOD COUNT (AUTO) 18.7 K/uL (4.8-10.8)
[2019-05-31 04:04] LABS: ALBUMIN 2.2 g/dL (3.5-5.0); BILIRUBIN,TOTAL 0.5 mg/dL (0.2-1.0); CREATININE 1.2 mg/dL (0.5-1.5); POTASSIUM 4.5 mmol/L (3.5-5.1); TOTAL PROTEIN, SERUM 6.5 g/dL (6.0-8.3)
[2019-05-31 04:32] VITALS: BP 98/54
[2019-05-31] MEDS: METHYLPREDNISOLONE SOD SUCC 40MG/ML 1ML IVP SCH ×3 (05:23→20:00)
[2019-05-31] MEDS: LEVOTHYROXINE 75 MCG TABLET PO SCH (05:23)
[2019-05-31] MEDS: BUDESONIDE 0.5 MG/2 ML INH IH SCH ×2 (07:02→18:56)
[2019-05-31 07:35] VITALS: BP 92/53
[2019-05-31] MEDS: POTASSIUM CHLORIDE 20 MEQ ERTAB PO SCH (07:56)
[2019-05-31] MEDS: FUROSEMIDE 20 MG TABLET PO SCH (07:56)
[2019-05-31] MEDS: SPIRONOLACTONE 25 MG TAB PO SCH (07:56)
[2019-05-31] MEDS: DILTIAZEM HCL 180 MG CAP.SR.24H PO SCH (07:57)
[2019-05-31] MEDS: APIXABAN 2.5 MG TABLET PO SCH ×2 (07:57→20:00)
[2019-05-31] MEDS: ASCORBIC ACID 500 MG TAB PO SCH ×2 (07:57→20:00)
[2019-05-31] MEDS: FAMOTIDINE 20MG TAB 20 MG TAB PO SCH (07:57)
--- NOTE | 2019-05-31 08:00 | NUR ---
ASSESSMENT PT IS AAOX4 DENIES CP DENIES SOB DENIES NV NO COMPLAINTS, BREATHING PATTERN IS EVEN AND UNLABORED. RESTING IN BED. CALL LIGHT WITHIN REACH. AM MEDS GIVEN AND TOLERATED.
[2019-05-31] MEDS: ZINC SULFATE 220 CAPSULE PO SCH (09:00)
[2019-05-31] MEDS: HYDROCODONE/ACETAMINOPHEN 5/325 MG TAB PO PRN ×2 (10:26→20:00)
[2019-05-31 11:13] VITALS: BP 92/65
[2019-05-31] MEDS: LEVOFLOXACIN 500 MG/D5W 100 ML 100 ML IV SCH (12:19)
[2019-05-31 14:49] VITALS: BP 98/53
--- NOTE | 2019-05-31 15:59 | NUR ---
RD NOTIFICATION DX: PNEUMONIA, LEUKOCYTOSIS, AFIB. HX: COPD, AFIB, HF, HTN, CKDIII, HYPOTHYROIDISM. DIET: PUREED/ HEART HEALTHY. SKIN INTACT, NO EDEMA NOTED. PO 25-50% AND HAS GOOD APPETITE PER PT. SHE IS TOLERATING HER FEEDINGS WELL. LBM: 05/30. PT CLAIMS SHE IS NOT ABLE TO TOLERATE THREE FEEDINGS. PT CAN TOLERATE 6 SMALL MEALS BETTER. PT IS USED TO HAVING SOMETHING SWEET AFTER HER MEALS. SHE SAYS SHE LIKES THE FOOD BETTER AT [facility] [place] TO WHERE SHE IS COMING FROM. PT DOES NOT LIKE MILK, LIVER OR FISH. RD RECOMMENDS TO CONTINUE CURRENT DIET. OFFER 6 SMALL MEALS INSTEAD OF THREE LARGE MEALS. RD WILL CONTINUE TO MONITOR AND FOLLOW UP NEEDED. Addendum: 05/31/19 at [address] Amended: Links added.
--- NOTE | 2019-05-31 17:45 | NUR ---
DC PLAN VISITED WITH PATIENT. PATIENT HEARD OF HEARING USES A WHITE BOARD. PATIENT PERMANENT RESIDENT OF [facility]. VERBAL CONSENT GIVEN TO SEND INFO. FAXED TO [facility]. PLAN TO DC TO FACILITY FOR PHYSICAL THERAPY. WILL NEED EMS DEBILITATED AT THIS TIME. Addendum: 05/31/19 at 1747 by LALIT JAY RN CM Amended: Links added.
[2019-05-31] MEDS: SODIUM CHLORIDE 0.9% 1000ML 1,000 ML IV SCH (18:57)
[2019-05-31 19:00] VITALS: BP 120/46
[2019-05-31] MEDS: **HM** MELATONIN 5MG PO SCH (20:08)
[2019-05-31 23:00] VITALS: BP 116/69
[2019-06-01] MEDS: GUAIFENESIN-DM 200/20 MG 10 ML PO SCH ×3 (01:18→12:55)
[2019-06-01] MEDS: IPRATROPIUM 0.5 MG/2.5 ML INH IH SCH ×4 (01:37→14:21)
[2019-06-01] MEDS: HYDROCODONE/ACETAMINOPHEN 5/325 MG TAB PO PRN ×3 (02:55→15:18)
[2019-06-01 03:36] LABS: BASOPHILS % (AUTO) 0.3 % (0.0-5.0); HEMATOCRIT 38.7 % (36-48); LYMPHOCYTES % (AUTO) 5.9 % (21.0-51.0); MEAN CORPUSCULAR HEMOGLOBIN 30.8 pg (27.0-33.0); MEAN CORPUSCULAR HGB CONC 33.4 g/dL (32.0-36.0); MEAN CORPUSCULAR VOLUME 92.2 fL (79-99); MONOCYTES % (AUTO) 2.1 % (3.0-13.0); NEUTROPHILS % (AUTO) 91.7 % (40.0-77.0); PLATELET COUNT (AUTO) 275 K/uL (130-400); RED CELL DISTRIBUTION WIDTH 13.8 % (11.0-15.5)
[2019-06-01 03:52] VITALS: BP 110/56
[2019-06-01 03:58] LABS: ALBUMIN 2.2 g/dL (3.5-5.0); BILIRUBIN,TOTAL 0.5 mg/dL (0.2-1.0); CREATININE 1.1 mg/dL (0.5-1.5); POTASSIUM 4.2 mmol/L (3.5-5.1); TOTAL PROTEIN, SERUM 6.1 g/dL (6.0-8.3)
--- NOTE | 2019-06-01 04:10 | NUR ---
Patient WIYOT. Use of white board for communication. Resting in bed. Medicated with ordered pain meds for pain in BLE. Patient receiving schedule neb tx. Wheezes heard with auscultation. Currently on IVF for impaired renal function per hospitalist. Will continue to monitor.
[2019-06-01] MEDS: METHYLPREDNISOLONE SOD SUCC 40MG/ML 1ML IVP SCH ×2 (05:24→12:55)
[2019-06-01] MEDS: LEVOTHYROXINE 75 MCG TABLET PO SCH (06:19)
[2019-06-01] MEDS: BUDESONIDE 0.5 MG/2 ML INH IH SCH (06:30)
[2019-06-01 07:43] VITALS: BP 118/60
--- NOTE | 2019-06-01 08:00 | NUR ---
AM ASSESSMENT PT LAYING IN BED, HOB ELEVATED 30 DEGREES, RESTING. SEVERE ALATNA. USING WHITE boldUnderline. llcSE BOARD @ BEDSIDE TO COMMUNICATE W/PT. A/O X 3. SOB ON EXERTION. (+) WHEEZE. NO DISTRESS NOTED. O2 NC @ 2L. DENIES CHEST PAIN OR DISCOMFORT. DENIES PALPITATIONS. TELE: AFIB 50s. DENIES N/V AND/OR DIARRHEA. OOB TO CHAIR W/ASSISTANCE. INSTRUCTED TO CALL FOR ASSISTANCE. CALL EMILEE W/IN REACH.
[2019-06-01] MEDS: SPIRONOLACTONE 25 MG TAB PO SCH (08:49)
[2019-06-01] MEDS: APIXABAN 2.5 MG TABLET PO SCH (08:49)
[2019-06-01] MEDS: FAMOTIDINE 20MG TAB 20 MG TAB PO SCH (08:49)
[2019-06-01] MEDS: DILTIAZEM HCL 180 MG CAP.SR.24H PO SCH (08:49)
[2019-06-01] MEDS: FUROSEMIDE 20 MG TABLET PO SCH (08:50)
[2019-06-01] MEDS: ASCORBIC ACID 500 MG TAB PO SCH (08:50)
[2019-06-01] MEDS: ZINC SULFATE 220 CAPSULE PO SCH (08:50)
[2019-06-01] MEDS: POTASSIUM CHLORIDE 20 MEQ ERTAB PO SCH (08:51)
[2019-06-01] MEDS ORDERED: LEVOFLOXACIN 500 MG/D5W 100 ML 100 ML IV SCH (09:00)
[2019-06-01 11:49] VITALS: BP 115/71
--- NOTE | 2019-06-01 14:30 | NUR ---
DISCHARGE MED REC FAXED TO [facility].
[2019-06-01] MEDS: SODIUM CHLORIDE 0.9% 1000ML 1,000 ML IV SCH (14:45)
--- NOTE | 2019-06-01 14:50 | NUR ---
DISCHARGE TELE ASTRID REMOVED. IV DISCONTINUED.
--- NOTE | 2019-06-01 15:03 | NUR ---
DISCHARGE REPORT GIVEN TO Dez STEPHENSON LVN @ [facility].
[2019-06-01 15:52] VITALS: BP 109/55
--- NOTE | 2019-06-01 16:50 | NUR ---
DISCHARGE [facility] ST[facility]FF HERE TO TRANSFER PT TO [facility]. PT TAKEN TO [facility] VEHICLE VIA BY [facility] STAFF. NO DISTRESS NOTED.
== END 2019-06-01 16:50 | DRG 871 ==
LOC: EDH 09:07 → EDHIP 13:07 → 2DH 22:58
PROVIDERS: ADMIT Internal Medicine; ATTEND Internal Medicine
DX: A41.9 Sepsis, unspecified organism (principal); J96.00 Acute respiratory failure, unspecified whether with hypoxia or hypercapnia; E43 Unspecified severe protein-calorie malnutrition; R53.2 Functional quadriplegia; I13.0 Hypertensive heart and chronic kidney disease with heart failure and stage 1 through stage 4 chronic kidney disease, or unspecified chronic kidney disease; I42.0 Dilated cardiomyopathy; J44.1 Chronic obstructive pulmonary disease with (acute) exacerbation; Z68.1 Body mass index [BMI] 19.9 or less, adult; N17.9 Acute kidney failure, unspecified; E03.9 Hypothyroidism, unspecified; E78.5 Hyperlipidemia, unspecified; F17.200 Nicotine dependence, unspecified, uncomplicated; G47.419 Narcolepsy without cataplexy; H91.90 Unspecified hearing loss, unspecified ear; I25.10 Atherosclerotic heart disease of native coronary artery without angina pectoris; I25.5 Ischemic cardiomyopathy; I48.0 Paroxysmal atrial fibrillation; I50.9 Heart failure, unspecified; N18.3 Chronic kidney disease, stage 3 (moderate); T38.0X5A Adverse effect of glucocorticoids and synthetic analogues, initial encounter; Y92.89 Other specified places as the place of occurrence of the external cause; I25.2 Old myocardial infarction; Z74.01 Bed confinement status; Z79.01 Long term (current) use of anticoagulants; Z79.890 Hormone replacement therapy; Z79.899 Other long term (current) drug therapy; Z99.81 Dependence on supplemental oxygen; Z91.011 Allergy to milk products; Z88.0 Allergy status to penicillin; Z88.8 Allergy status to other drugs, medicaments and biological substances; Z91.018 Allergy to other foods
CPT/HCPCS: 36415; 36600; 71045; 71250; 74176; 80053; 81001; 82550; 82803; 83605; 83874; 83880; 84145; 84484; 85025; 85610; 85730; 87040; 87088; 87486; 87581; 87633; 87798; 93005; 94640; 94664; 97039; G0378; J1956; J2543; J2920; J7030; Q9963

== ENCOUNTER 2019-07-07 11:06 | Inpatient (IN) | payer MEDICARE ==
[~2019-07-07] VITALS: Ht 160 cm; Wt 52.2 kg
[~2019-07-07 11:06] MED LIST changes: -ASCO500T10 PO; -POTA20TA82 PO
[2019-07-07 11:57] LABS: INR 1.15 (0.85-1.15); PARTIAL THROMBOPLASTIN TIME 34.7 SEC (26.3-35.5)
[2019-07-07 12:03] LABS: B-TYPE NATRIURETIC PEPTIDE 221 pg/mL (0-100)
[2019-07-07 12:04] LABS: CREATININE 1.3 mg/dL (0.5-1.5); POTASSIUM 5.5 mmol/L (3.5-5.1)
[2019-07-07 12:07] LABS: BASOPHILS % (AUTO) 0.2 % (0.0-5.0); HEMATOCRIT 45.8 % (36-48); MEAN CORPUSCULAR HEMOGLOBIN 22.8 pg (27.0-33.0); MEAN CORPUSCULAR VOLUME 95.1 fL (79-99); MONOCYTES % (AUTO) 4.6 % (3.0-13.0); NEUTROPHILS % (AUTO) 91.2 % (40.0-77.0); PLATELET COUNT (AUTO) 183 K/uL (130-400); RED BLOOD CELL COUNT(AUTO) 4.81 MIL/uL (4.00-5.50); RED CELL DISTRIBUTION WIDTH 15.2 % (11.0-15.5); WHITE BLOOD COUNT (AUTO) 25.8 K/uL (4.8-10.8)
[2019-07-07 12:09] LABS: ALBUMIN 2.4 g/dL (3.5-5.0); BILIRUBIN,TOTAL 1.5 mg/dL (0.2-1.0); TOTAL PROTEIN, SERUM 6.6 g/dL (6.0-8.3)
[2019-07-07] MEDS ORDERED: LEVOFLOXACIN 500 MG/D5W 100 ML 100 ML ONE (12:28)
[2019-07-07] MEDS ORDERED: ACETAMINOPHEN 325 MG TAB PO PRN ×2 (14:30)
[2019-07-07] MEDS: SODIUM CHLORIDE 0.9% 1000ML 1,000 ML IV SCH (14:30)
[2019-07-07] MEDS ORDERED: LACTULOSE 20 GM/30 ML UDCUP PO PRN (14:30)
[2019-07-07] MEDS ORDERED: ONDANSETRON HCL 4 MG/2 ML VIAL IV PRN (14:30)
[2019-07-07 15:11] LABS: POTASSIUM 4.3 mmol/L (3.5-5.1)
[2019-07-07] MEDS ORDERED: SODIUM CHLORIDE 0.9% 1000ML 1,000 ML IV ONE (15:11)
[2019-07-07 16:30] VITALS: BP 103/63
[2019-07-07] MEDS: IPRATROPIUM/ALBUTEROL SULFATE 3 ML SOLUTION IH SCH ×2 (18:53→21:39)
[2019-07-07] MEDS ORDERED: SODIUM CHLORIDE 3% FOR INHALATION 4 ML/AMP VIAL.NEB IH ONE ×2 (19:07→21:50)
[2019-07-07 19:57] VITALS: BP 144/61
[2019-07-07] MEDS: FAMOTIDINE 20MG TAB 20 MG TAB PO SCH (20:30)
[2019-07-07 23:32] VITALS: BP 120/75
[2019-07-08] MEDS ORDERED: SODIUM CHLORIDE 3% FOR INHALATION 4 ML/AMP VIAL.NEB IH ONE (01:05)
[2019-07-08] MEDS: IPRATROPIUM/ALBUTEROL SULFATE 3 ML SOLUTION IH SCH ×8 (01:09→22:41)
[2019-07-08 02:21] LABS: BASOPHILS % (AUTO) 1.8 % (0.0-5.0); EOSINOPHILS % (AUTO) 0.2 % (0.0-8.0); HEMATOCRIT 41.5 % (36-48); MEAN CORPUSCULAR HEMOGLOBIN 31.2 pg (27.0-33.0); MEAN CORPUSCULAR HGB CONC 32.9 g/dL (32.0-36.0); MEAN CORPUSCULAR VOLUME 94.7 fL (79-99); MONOCYTES % (AUTO) 4.9 % (3.0-13.0); NEUTROPHILS % (AUTO) 89.1 % (40.0-77.0); PLATELET COUNT (AUTO) 168 K/uL (130-400); RED BLOOD CELL COUNT(AUTO) 4.39 MIL/uL (4.00-5.50); RED CELL DISTRIBUTION WIDTH 15.1 % (11.0-15.5); WHITE BLOOD COUNT (AUTO) 18.7 K/uL (4.8-10.8)
[2019-07-08 02:30] LABS: CREATININE 0.7 mg/dL (0.5-1.5); POTASSIUM 3.6 mmol/L (3.5-5.1)
[2019-07-08 04:38] VITALS: BP 150/71
[2019-07-08 07:35] VITALS: BP 140/71
[2019-07-08] MEDS ORDERED: METOPROLOL TARTRATE 1 MG/ML 5ML VIAL IV ONE (07:57)
[2019-07-08] MEDS ORDERED: METOPROLOL TARTRATE 1 MG/ML 5ML VIAL IV PRN (08:00)
--- NOTE | 2019-07-08 08:39 | NUR ---
INFORMED DR. GAONA OF THE NEW CONSULT.
[2019-07-08] MEDS ORDERED: ENOXAPARIN SODIUM 40 MG/0.4 ML SYRINGE SQ SCH (09:00)
[2019-07-08] MEDS ORDERED: METOPROLOL TARTRATE 25 MG TAB PO SCH (09:00)
[2019-07-08] MEDS ORDERED: ENOXAPARIN SODIUM 60 MG/0.6 ML SQ SCH (09:20)
[2019-07-08] MEDS: FAMOTIDINE 20MG TAB 20 MG TAB PO SCH ×2 (09:22→21:31)
[2019-07-08] MEDS ORDERED: LACTULOSE 20 GM/30 ML UDCUP PO PRN (11:00)
[2019-07-08] MEDS: SUCRALFATE 1 GM/10 ML PO SCH ×2 (11:30→17:28)
[2019-07-08 11:35] VITALS: BP 129/47
[2019-07-08] MEDS ORDERED: ACETAMINOPHEN 325 MG TAB PO PRN (13:45)
[2019-07-08] MEDS: LEVOFLOXACIN 500 MG/D5W 100 ML 100 ML IV SCH ×2 (14:30→14:43)
[2019-07-08] MEDS: ACETAMINOPHEN-CODEINE 300/30MG TAB PO SCH ×2 (14:42→21:33)
[2019-07-08] MEDS: ONDANSETRON ODT 4 MG TAB PO SCH ×2 (14:42→21:33)
[2019-07-08] MEDS: SODIUM CHLORIDE 0.9% 1000ML 1,000 ML IV SCH ×2 (14:43→20:41)
--- NOTE | 2019-07-08 15:23 | NUR ---
karely note met with patient and states is a shelter pt at [facility]. pt states can go via van transport at time of discharge. choice letter andMARK signed for [facility]. vielkap back to [facility]. call made to [facility] pt can return back to [facility] when ready. Addendum: 07/08/19 at 1532 by MELANIE BOOKER CM Amended: Links added.
[2019-07-08 15:30] VITALS: BP 115/67
[2019-07-08] MEDS ORDERED: ALBUTEROL SULFATE 0.083% 2.5 MG/3 ML INH IH SCH (18:00)
[2019-07-08] MEDS: BUDESONIDE 0.5 MG/2 ML INH IH SCH (18:09)
[2019-07-08 20:17] VITALS: BP 103/71
[2019-07-08] MEDS: PYRIDOXINE HCL PO SCH (21:00)
[2019-07-08] MEDS: MELATONIN PO SCH (21:00)
[2019-07-08] MEDS: METOPROLOL TARTRATE 25 MG TAB PO SCH (21:32)
[2019-07-08] MEDS: APIXABAN 2.5 MG TABLET PO SCH (21:33)
[2019-07-09] VITALS (7 sets, daily range): BP systolic 107–142; BP diastolic 52–77
[2019-07-09] MEDS: IPRATROPIUM/ALBUTEROL SULFATE 3 ML SOLUTION IH SCH ×5 (02:04→22:07)
[2019-07-09 04:08] LABS: HEMATOCRIT 37.9 % (36-48); MEAN CORPUSCULAR HGB CONC 33.1 g/dL (32.0-36.0); MEAN CORPUSCULAR VOLUME 93.9 fL (79-99); NUCLEATED RED BLOOD CELLS 0.1 % (0.0-0.19); PLATELET COUNT (AUTO) 176 K/uL (130-400); RED BLOOD CELL COUNT(AUTO) 4.03 MIL/uL (4.00-5.50); WHITE BLOOD COUNT (AUTO) 13.5 K/uL (4.8-10.8)
[2019-07-09 04:41] LABS: EOSINOPHILS % (MANUAL) 1 % (1-6); LYMPHOCYTES % (MANUAL) 10 % (22-44); MAN.DIFF COMMENT-IMPRESSION MANUAL DIFFERENTIAL; MONOCYTES % (MANUAL) 1 % (2-9); PLATELET MORPHOLOGY COMMENT ADEQUATE; SEGMENTED NEUTROPHILS % 88 % (40-70)
[2019-07-09] MEDS: SUCRALFATE 1 GM/10 ML PO SCH ×3 (05:50→17:19)
[2019-07-09] MEDS: LEVOTHYROXINE 75 MCG TABLET PO SCH (06:43)
[2019-07-09] MEDS: BUDESONIDE 0.5 MG/2 ML INH IH SCH ×2 (06:55→18:57)
[2019-07-09] MEDS: FAMOTIDINE 20MG TAB 20 MG TAB PO SCH ×2 (10:05→22:14)
[2019-07-09] MEDS: APIXABAN 2.5 MG TABLET PO SCH ×2 (10:05→22:14)
[2019-07-09] MEDS: ONDANSETRON ODT 4 MG TAB PO SCH ×3 (10:05→22:14)
[2019-07-09] MEDS: FUROSEMIDE 20 MG TABLET PO SCH (10:06)
[2019-07-09] MEDS: SENNOSIDES 8.6 MG TABLET PO SCH (10:06)
[2019-07-09] MEDS: SPIRONOLACTONE 25 MG TAB PO SCH (10:06)
[2019-07-09] MEDS: METOPROLOL TARTRATE 25 MG TAB PO SCH ×2 (10:06→22:15)
[2019-07-09] MEDS: ZINC SULFATE 220 CAPSULE PO SCH (10:06)
[2019-07-09] MEDS: ACETAMINOPHEN-CODEINE 300/30MG TAB PO SCH ×3 (10:11→22:19)
[2019-07-09] MEDS: SODIUM CHLORIDE 0.9% 1000ML 1,000 ML IV SCH (11:01)
[2019-07-09] MEDS: LEVOFLOXACIN 500 MG/D5W 100 ML 100 ML IV SCH (15:08)
[2019-07-09] MEDS: MELATONIN PO SCH (21:00)
[2019-07-09] MEDS: PYRIDOXINE HCL PO SCH (21:00)
[2019-07-09] MEDS ORDERED: ATORVASTATIN CALCIUM 40 MG TABLET PO SCH (21:00)
[2019-07-10] MEDS: IPRATROPIUM/ALBUTEROL SULFATE 3 ML SOLUTION IH SCH ×4 (02:05→13:25)
[2019-07-10 03:45] VITALS: BP 121/61
[2019-07-10] MEDS: BUDESONIDE 0.5 MG/2 ML INH IH SCH (06:27)
[2019-07-10] MEDS: LEVOTHYROXINE 75 MCG TABLET PO SCH (06:34)
[2019-07-10] MEDS: SUCRALFATE 1 GM/10 ML PO SCH ×3 (06:34→16:58)
[2019-07-10 08:10] VITALS: BP 133/83
--- NOTE | 2019-07-10 08:15 | NUR ---
AM ASSESSMENT PT LAYING IN BED, RESTING. SEVERE ALEKNAGIK,COMMUNICATE THROUGH DRY/ERASE BOARD. A/O X 3. NO SOB. NO DISTRESS NOTED. O2 NC @ 2L. DENIES CHEST PAIN OR DISCOMFORT. DENIES PALPITATIONS. TELE: AFIB. DENIES N/V AND/OR DIARRHEA. UP TO CHAIR W/ASSISTANCE. INSTRUCTED TO CALL FOR ASSISTANCE. CALL EMILEE W/IN REACH.
[2019-07-10 08:57] LABS: BASOPHILS % (AUTO) 0.4 % (0.0-5.0); HEMATOCRIT 37.8 % (36-48); LYMPHOCYTES % (AUTO) 11.5 % (21.0-51.0); MEAN CORPUSCULAR HEMOGLOBIN 31.1 pg (27.0-33.0); MEAN CORPUSCULAR VOLUME 94.3 fL (79-99); MONOCYTES % (AUTO) 4.9 % (3.0-13.0); NEUTROPHILS % (AUTO) 82.2 % (40.0-77.0); PLATELET COUNT (AUTO) 187 K/uL (130-400); RED BLOOD CELL COUNT(AUTO) 4.01 MIL/uL (4.00-5.50); RED CELL DISTRIBUTION WIDTH 14.8 % (11.0-15.5); WHITE BLOOD COUNT (AUTO) 8.8 K/uL (4.8-10.8)
[2019-07-10] MEDS ORDERED: LEVOFLOXACIN 500 MG/D5W 100 ML 100 ML IV SCH (09:00)
[2019-07-10] MEDS: FUROSEMIDE 20 MG TABLET PO SCH (09:13)
[2019-07-10] MEDS: ONDANSETRON ODT 4 MG TAB PO SCH ×2 (09:13→13:30)
[2019-07-10] MEDS: SENNOSIDES 8.6 MG TABLET PO SCH (09:13)
[2019-07-10] MEDS: ZINC SULFATE 220 CAPSULE PO SCH (09:14)
[2019-07-10] MEDS: SPIRONOLACTONE 25 MG TAB PO SCH (09:14)
[2019-07-10] MEDS: FAMOTIDINE 20MG TAB 20 MG TAB PO SCH (09:14)
[2019-07-10] MEDS: APIXABAN 2.5 MG TABLET PO SCH (09:14)
[2019-07-10] MEDS: METOPROLOL TARTRATE 25 MG TAB PO SCH (09:15)
[2019-07-10] MEDS: ACETAMINOPHEN-CODEINE 300/30MG TAB PO SCH ×2 (09:17→13:29)
[2019-07-10 09:26] LABS: CREATININE 0.8 mg/dL (0.5-1.5); CRP QUANTITATIVE 37.1 mg/L (0.00-9.0); MAGNESIUM 1.7 mg/dL (1.80-2.40); PHOSPHORUS 2.4 mg/dL (2.5-4.9); POTASSIUM 3.1 mmol/L (3.5-5.1); TROPONIN I 0.08 ng/mL (0.00-0.06)
[2019-07-10] MEDS ORDERED: FAMO20TA8 PO (10:28)
[2019-07-10] MEDS ORDERED: ATOR40TA69 PO (10:28)
[2019-07-10] MEDS ORDERED: METO25 PO (10:28)
[2019-07-10 11:44] VITALS: BP 125/61
--- NOTE | 2019-07-10 13:18 | NUR ---
Jaclyn gray Notified Laura with [facility] of discharge today. Per Laura, patient is accepted back. Notified primary nurse. HIM called to ext. [phone] to copy chart. Patient to transfer back via [facility] smith CD Addendum: 07/10/19 at 1319 by ZEE ESPAÑA CM Amended: Links added.
[2019-07-10 15:46] VITALS: BP 129/68
--- NOTE | 2019-07-10 16:05 | NUR ---
DISCHARGE MED REC FAXED TO [facility].
--- NOTE | 2019-07-10 17:05 | NUR ---
DISCHARGE REPORT GIVEN TO TEVIN JONES LVN.
--- NOTE | 2019-07-10 17:20 | NUR ---
DISCHARGE VERBAL & WRITTEN DISCHARGE INSTRUCTIONS REVIEWED & GIVEN TO PT. QUESTIONS ENCOURAGED & CLARIFIED. PROPER CARE & PREVENTION OF PNA REVIEWED. TELE ASTRID REMOVED. IV DISCONTINUED. AWAITING FOR [facility] TRANSP[facility] TO TRANSFER PT TO FACILITY.
== END 2019-07-10 18:10 | DRG 871 ==
LOC: EDH 11:06 → EDHIP 12:50 → 2AH 14:54
PROVIDERS: ADMIT Family Medicine; ATTEND Family Medicine
DX: A41.9 Sepsis, unspecified organism (principal); J18.9 Pneumonia, unspecified organism; J44.0 Chronic obstructive pulmonary disease with (acute) lower respiratory infection; E44.0 Moderate protein-calorie malnutrition; N17.9 Acute kidney failure, unspecified; I48.92 Unspecified atrial flutter; R04.2 Hemoptysis; Y95 Nosocomial condition; E87.5 Hyperkalemia; N18.3 Chronic kidney disease, stage 3 (moderate); I48.0 Paroxysmal atrial fibrillation; I12.9 Hypertensive chronic kidney disease with stage 1 through stage 4 chronic kidney disease, or unspecified chronic kidney disease; E03.9 Hypothyroidism, unspecified; E78.5 Hyperlipidemia, unspecified; F17.200 Nicotine dependence, unspecified, uncomplicated; F41.9 Anxiety disorder, unspecified; G25.81 Restless legs syndrome; I25.10 Atherosclerotic heart disease of native coronary artery without angina pectoris; K59.00 Constipation, unspecified; Z66 Do not resuscitate; I73.9 Peripheral vascular disease, unspecified; Z68.20 Body mass index [BMI] 20.0-20.9, adult; Z99.81 Dependence on supplemental oxygen; Z79.01 Long term (current) use of anticoagulants; I25.2 Old myocardial infarction; Z90.710 Acquired absence of both cervix and uterus; Z88.0 Allergy status to penicillin; Z88.8 Allergy status to other drugs, medicaments and biological substances; Z91.011 Allergy to milk products
CPT/HCPCS: 36415; 71045; 80048; 80053; 82550; 83605; 83735; 83874; 83880; 84100; 84132; 84145; 84484; 85025; 85610; 85730; 86140; 87040; 87071; 87077; 87186; 87205; 87804; 93005; 93925; 94640; 94664; G0378; J1650; J1956; J3490; J7030

== ENCOUNTER → 2019-07-31 | Outpatient (CLI) | payer MEDICARE ==
[~2019-07-31] MED LIST changes: -ALBUHFA IH; +ATOR40TA69 PO; +FAMO20TA8 PO; -LEVO500T2 PO; +METO25 PO; -SPIR25TA6 PO; -TYL3 PO; +ZINC1CAP3 PO; -ZINC220 PO
== END | disposition home or self-care (01) ==
LOC: SHCH 12:39
PROVIDERS: ATTEND Internal Medicine Cardiovascular Disease
DX: I70.203 Unspecified atherosclerosis of native arteries of extremities, bilateral legs (principal)
CPT/HCPCS: 93925

== ENCOUNTER 2019-11-04 13:17 | Inpatient (IN) | payer MEDICARE ==
[~2019-11-04] VITALS: Ht 157.5 cm; Wt 57.1 kg
[2019-11-04 13:54] LABS: BASOPHILS % (AUTO) 0.3 % (0.0-5.0); EOSINOPHILS % (AUTO) 0.8 % (0.0-8.0); HEMATOCRIT 40.6 % (36-48); LYMPHOCYTES % (AUTO) 11.1 % (21.0-51.0); MEAN CORPUSCULAR HEMOGLOBIN 28.1 pg (27.0-33.0); MEAN CORPUSCULAR VOLUME 90.6 fL (79-99); MONOCYTES % (AUTO) 9.2 % (3.0-13.0); NEUTROPHILS % (AUTO) 76.9 % (40.0-77.0); PLATELET COUNT (AUTO) 345 K/uL (130-400); RED BLOOD CELL COUNT(AUTO) 4.48 MIL/uL (4.00-5.50); RED CELL DISTRIBUTION WIDTH 14.9 % (11.0-15.5); WHITE BLOOD COUNT (AUTO) 14.4 K/uL (4.8-10.8)
[2019-11-04 14:04] LABS: CREATININE 0.8 mg/dL (0.5-1.5); POTASSIUM 3.5 mmol/L (3.5-5.1)
[2019-11-04 14:09] LABS: ALBUMIN 1.9 g/dL (3.5-5.0); BILIRUBIN,TOTAL 0.4 mg/dL (0.2-1.0); TOTAL PROTEIN, SERUM 7.6 g/dL (6.0-8.3)
[2019-11-04] MEDS ORDERED: IPRATROPIUM/ALBUTEROL SULFATE 3 ML SOLUTION IH ONE (14:16)
[2019-11-04 14:27] LABS: B-TYPE NATRIURETIC PEPTIDE 137 pg/mL (0-100)
[2019-11-04] MEDS ORDERED: LEVOFLOXACIN 500 MG/D5W 100 ML 100 ML ONE (15:53)
[2019-11-04] MEDS ORDERED: ONDANSETRON HCL 4 MG/2 ML VIAL IVP PRN (16:45)
[2019-11-04] MEDS: LEVOFLOXACIN 500 MG/D5W 100 ML 100 ML IV SCH (16:45)
[2019-11-04] MEDS: IPRATROPIUM/ALBUTEROL SULFATE 3 ML SOLUTION IH SCH ×2 (18:00→23:36)
[2019-11-04] MEDS ORDERED: VANCOMYCIN PROTOCOL PER PHARMACY IV SCH (19:00)
[2019-11-04 20:34] VITALS: BP 103/67
--- NOTE | 2019-11-04 21:00 | NUR ---
ADMIT PT ADMITTED TO ROOM 325, AAOX3 BUT HAS [place]ION, WRITING BOARD NEEDED TO COMMUNICATE WITH PT.NOTED PT TO HAVE SOB ON EXERTION EVEN IN BED. ADMISSION CARE DONE. ADMISSION DATA BASE COMPLETED. PLACED PT ON DROPLET ISOLATION.MAINTAINED ON O2 AT 3LPM VIA NC. NASAL SWAB DONE FOR RESPIRATORY PCR, SENT O LAB FOR ANALYSIS. ORIENTED TO ROOM AND UNIT. CALL LIGHT WITHIN REACH. IN FOR MORE CARE AND MANAGEMENT. Addendum: 11/04/19 at 2248 by BANDAR GOMEZ RN RN Amended: Links added.
[2019-11-04] MEDS ORDERED: FLUO30CR TP (22:21)
[2019-11-04] MEDS ORDERED: TRAM50TA4 PO (22:21)
[2019-11-04] MEDS ORDERED: ZIT500IVPB IV (22:21)
[2019-11-04] MEDS ORDERED: AREDS 2 FORMULA PO (22:21)
[2019-11-04] MEDS ORDERED: CEFD300C3 PO (22:21)
[2019-11-04] MEDS ORDERED: DICL2100G TP (22:21)
[2019-11-04] MEDS ORDERED: SPIR25TA6 PO (22:21)
[2019-11-04] MEDS ORDERED: [UNRECOGNIZED DRUG - CODE] PO (22:21)
[2019-11-04] MEDS ORDERED: IPRA3AMP24 IH (22:21)
[2019-11-04] MEDS ORDERED: ALBU0.63 IH (22:21)
[2019-11-04] MEDS ORDERED: OSEL75 PO (22:21)
[2019-11-04] MEDS ORDERED: NA P133E22 RC (22:21)
[2019-11-04 23:34] VITALS: BP 123/72
--- NOTE | 2019-11-05 02:00 | NUR ---
ROUNDS PT RESTING WELL, FAIRLY ASLEEP WITH RESPIRATIONS EVEN AND UNLABORED. NO NOTED DISTRESS. KEPT RESTED AND COMFORTABLE. CALL LIGHT WITHIN REACH.
[2019-11-05] MEDS: IPRATROPIUM/ALBUTEROL SULFATE 3 ML SOLUTION IH SCH ×6 (02:51→21:24)
--- NOTE | 2019-11-05 03:20 | NUR ---
PAIN PT COMPLAINTS OF LEG PAINS. NO PRN MEDS ORDERED. PAGED ESSENCE, SHELF STOCKER DUSTER TENDER FOR HOSPITALIST, PAGED VIA ANSWERING SERVICE. SHELF STOCKER CALLED BACK AND REFERRED PT'S PAIN COMPLAINTS. NEW MED ORDER GIVEN, WILL MEDICATE PT.
[2019-11-05 03:45] VITALS: BP 120/69
[2019-11-05] MEDS ORDERED: VANCOMYCIN PROTOCOL PER PHARMACY IV SCH (03:45)
[2019-11-05] MEDS: ACETAMINOPHEN 325 MG TAB PO PRN (03:45)
[2019-11-05] MEDS ORDERED: ACETAMINOPHEN 325 MG TAB PO PRN (03:45)
[2019-11-05] MEDS ORDERED: VANCOMYCIN 1GM+NS 250ML 250 ML IV ONE (05:00)
--- NOTE | 2019-11-05 05:07 | NUR ---
RE-PAGED PT CLAIMS OF STILL HAVING LEG PAINS AND TYLENOL DOSE GIVEN HAS NOT HELP WITH HER PAINS. ESSENCE, EDGE KITTER FOR HOSPITALIST, PAGED VIA ANSWERING SERVICE. EDGE KITTER CALLED BACK AND REFERRED PT'S COMPLAINTS. NEW MED ORDER GIVEN. WILL MEDICATE PT.
[2019-11-05] MEDS ORDERED: TRAMADOL HCL 50 MG TABLET ONE (05:10)
[2019-11-05 05:35] LABS: BASOPHILS % (AUTO) 0.1 % (0.0-5.0); EOSINOPHILS % (AUTO) 0.7 % (0.0-8.0); HEMATOCRIT 37.8 % (36-48); MEAN CORPUSCULAR HEMOGLOBIN 28.1 pg (27.0-33.0); MEAN CORPUSCULAR HGB CONC 30.4 g/dL (32.0-36.0); MEAN CORPUSCULAR VOLUME 92.4 fL (79-99); MONOCYTES % (AUTO) 9.1 % (3.0-13.0); NEUTROPHILS % (AUTO) 77.4 % (40.0-77.0); PLATELET COUNT (AUTO) 336 K/uL (130-400); RED BLOOD CELL COUNT(AUTO) 4.09 MIL/uL (4.00-5.50); RED CELL DISTRIBUTION WIDTH 14.9 % (11.0-15.5); WHITE BLOOD COUNT (AUTO) 14.5 K/uL (4.8-10.8)
[2019-11-05 06:30] LABS: CREATININE 0.8 mg/dL (0.5-1.5); POTASSIUM 3.3 mmol/L (3.5-5.1)
[2019-11-05 07:28] VITALS: BP 96/52
[2019-11-05] MEDS: TRAMADOL HCL 50 MG TABLET PO PRN ×2 (10:04→21:55)
[2019-11-05 11:04] VITALS: BP 99/56
[2019-11-05] MEDS ORDERED: DICLOFENAC SODIUM TP PRN (13:45)
[2019-11-05] MEDS ORDERED: APPL TP PRN (13:45)
[2019-11-05] MEDS: GUAIFENESIN-DM 200/20 MG 10 ML PO PRN ×2 (14:02→23:47)
--- NOTE | 2019-11-05 15:29 | NUR ---
RD Notification Pt admitted for CAP. Pt with previous poor appetite. Upon visit, Pt reports improved appetite. Recommend to add Ensure BID with meals. Pt with no previous/recent wt loss. Recommend to continue current diet order. RD to continue monitor. Addendum: 11/05/19 at [address] Amended: Links added.
[2019-11-05 15:46] VITALS: BP 115/59
[2019-11-05] MEDS: SUCRALFATE 1 GM/10 ML PO SCH (17:06)
[2019-11-05] MEDS: LEVOFLOXACIN 500 MG/D5W 100 ML 100 ML IV SCH (17:11)
[2019-11-05] MEDS: BUDESONIDE 0.5 MG/2 ML INH IH SCH (18:10)
[2019-11-05 19:57] VITALS: BP 116/55
[2019-11-05] MEDS ORDERED: POTASSIUM CHLORIDE 20MEQ/100ML 100 ML IV PRN (20:30)
[2019-11-05] MEDS ORDERED: LIDOCAINE HCL-MPF 1% 2ML VIAL IM PRN (20:30)
[2019-11-05] MEDS ORDERED: POTASSIUM CHLORIDE 20 MEQ ERTAB PO PRN (20:30)
[2019-11-05] MEDS ORDERED: METOPROLOL TARTRATE 25 MG TAB PO SCH (21:00)
[2019-11-05] MEDS: AREDS FORMULA PO SCH (21:00)
[2019-11-05] MEDS: NIACINAMIDE TP SCH (21:00)
[2019-11-05] MEDS: FLUOCINOLONE TP SCH (21:00)
[2019-11-05] MEDS: METHYLPREDNISOLONE SOD SUCC 40MG/ML 1ML IVP SCH (21:52)
[2019-11-05] MEDS: FAMOTIDINE 20MG TAB 20 MG TAB PO SCH (21:53)
[2019-11-05] MEDS: ATORVASTATIN CALCIUM 40 MG TABLET PO SCH (21:53)
--- NOTE | 2019-11-05 22:15 | NUR ---
TELE TELE INTERNATIONAL SPECIALIST CALLED AND INFORMED WATER WELL DRILLER THAT PT IS HAVING AFIB WITH RVR, HU=023'S TO 160'S BPM. PT JUST HAD A BREATHING TREATMENT DONE AND CLAIMS OF PAINS ON HER RT SHOULDER AND HER LEGS. KAMRAN JUNG, IN TO GIVE MEDS AT THIS TIME.
[2019-11-05] MEDS ORDERED: METOPROLOL TARTRATE 1 MG/ML 5ML VIAL IV STA (22:21)
[2019-11-05] MEDS ORDERED: METOPROLOL TARTRATE 1 MG/ML 5ML VIAL IV ONE (22:27)
--- NOTE | 2019-11-05 22:35 | NUR ---
PAGED TELE MONITOR CALLED AGAIN AND INFORMS EXECUTIVE DIRECTOR CONTRACT SHOP OF PT'S HR STILL AFIB WITH RVR WITH QP=848'S TO 180'S. PAGED AJ, MARKETING INFORMATION ANALYST OUTSIDE INSTALLER APPRENTICE FOR HOSPITALIST, VIA ANSWERING SERVICE. MARKETING INFORMATION ANALYST CALLED BACK AND INFORMED OF PT'S CONDITION. NEW MED ORDER GIVEN, PLEASE REFER TO CPOE. INFORMED OF PT'S REQUEST TO BE DNR AND THAT PT ALREADY HAD SIGNED DNR FORM. CODE STATUS PLACED PT DNR. EXECUTIVE DIRECTOR CONTRACT SHOP WAS ABOUT TO MEDICATE PT WITH LOPRESSOR BUT PIV IS LEAKING. DISCONTINUED PIV WITH CATHETER INTACT. RE-INSERTED PIV G20 TO RT FOREARM. V/S MONITORED, DQ=[id number], JQ=955 BPM. LOPRESSOR DOSE GIVEN. WILL MONITOR CLOSELY.
--- NOTE | 2019-11-05 23:20 | NUR ---
COMPENSATION ADJUSTER TELE MONITOR REPORTS THAT PT IS STILL AFIB BUT HR IS DOWN TO 105. PT IS RESTING AND NO CONCERNS VERBALIZED. AJ, COMPENSATION ADJUSTER, ON THE FLOOR TO SEE PT. UPDATED ON PT CONDITION. PRN ORDER FOR LOPRESSOR GIVEN, PLEASE REFER TO CPOE.
[2019-11-05 23:32] VITALS: BP 139/80
[2019-11-05] MEDS: POTASSIUM CHLORIDE 10% ELIXIR 20 MEQ/15 ML UDCUP PO PRN (23:47)
[2019-11-06] MEDS ORDERED: SODIUM CHLORIDE 3% FOR INHALATION 4 ML/AMP VIAL.NEB IH ONE (00:57)
[2019-11-06] MEDS: IPRATROPIUM/ALBUTEROL SULFATE 3 ML SOLUTION IH SCH ×6 (01:03→21:39)
--- NOTE | 2019-11-06 01:25 | NUR ---
RT KASEY, RT, MADE AWARE OF SPUTUM CX PENDING. RT GAVE PT A BREATHING TREATMENT TO INDUCE SPUTUM. PT MADE AWARE OF NEED TO COLLECT SPECIMEN. SPECIMEN CUP PROVIDED.
[2019-11-06] MEDS: POTASSIUM CHLORIDE 10% ELIXIR 20 MEQ/15 ML UDCUP PO PRN (01:42)
[2019-11-06 03:28] VITALS: BP 126/88
[2019-11-06] MEDS: METOPROLOL TARTRATE 1 MG/ML 5ML VIAL IV PRN (04:24)
--- NOTE | 2019-11-06 04:25 | NUR ---
HR TELE LOCKER PLANT ATTENDANT INFORMS DRUM TENDER THAT PT'S HR-140'S TO 150'S AT THIS TIME. MONITORED BP =126/88. NO COMPLAINTS VERBALIZED BY PT. LOPRESSOR DOSE IV ADMINISTERED BY KAMRAN JUNG. WILL RE-ASSESS PT.
[2019-11-06] MEDS: SUCRALFATE 1 GM/10 ML PO SCH ×3 (05:46→16:59)
[2019-11-06] MEDS: VANCOMYCIN 1GM+NS 250ML 250 ML IV SCH (05:46)
[2019-11-06] MEDS: BUDESONIDE 0.5 MG/2 ML INH IH SCH ×2 (06:40→18:32)
[2019-11-06] MEDS: LEVOTHYROXINE 75 MCG TABLET PO SCH (06:49)
[2019-11-06 07:52] VITALS: BP 110/64
[2019-11-06] MEDS: SPIRONOLACTONE 25 MG TAB PO SCH (08:01)
[2019-11-06] MEDS: FUROSEMIDE 20 MG TABLET PO SCH (08:01)
[2019-11-06] MEDS: FAMOTIDINE 20MG TAB 20 MG TAB PO SCH ×2 (08:01→20:13)
[2019-11-06] MEDS: METHYLPREDNISOLONE SOD SUCC 40MG/ML 1ML IVP SCH ×2 (08:01→20:13)
[2019-11-06] MEDS: ZINC SULFATE 220 CAPSULE PO SCH (08:02)
[2019-11-06] MEDS: TRAMADOL HCL 50 MG TABLET PO PRN ×2 (08:02→20:59)
[2019-11-06] MEDS: SENNOSIDES 8.6 MG TABLET PO SCH (08:02)
[2019-11-06] MEDS: MELATONIN PO SCH (08:03)
[2019-11-06] MEDS: AREDS FORMULA PO SCH ×2 (08:03→20:14)
[2019-11-06] MEDS: NIACINAMIDE TP SCH ×2 (08:03→20:14)
[2019-11-06] MEDS: FLUOCINOLONE TP SCH ×2 (08:03→20:14)
[2019-11-06] MEDS: PYRIDOXINE HCL PO SCH (08:03)
[2019-11-06] MEDS: METOPROLOL TARTRATE 25 MG TAB PO SCH ×3 (08:42→20:14)
[2019-11-06 10:47] VITALS: BP 101/58
[2019-11-06] MEDS: LEVOFLOXACIN 500 MG/D5W 100 ML 100 ML IV SCH (16:59)
[2019-11-06 17:28] VITALS: BP 92/65
[2019-11-06 20:00] VITALS: BP 103/61
[2019-11-06] MEDS: ATORVASTATIN CALCIUM 40 MG TABLET PO SCH (20:14)
--- NOTE | 2019-11-06 20:15 | NUR ---
MEDS SHIFT ASSESSMENT DONE, PLEASE REFER TO CHART. DUE MEDS ADMINISTERED, TOLERATED WELL. RT IN TO DO ABG. KEPT COMFORTABLE IN BED WITH HOB ELEVATED. CALL LIGHT WITHIN REACH. WILL MONITOR PT. Addendum: 11/06/19 at 2245 by BANDAR GOMEZ RN RN Amended: Links added.
[2019-11-06 20:33] LABS: ABG BASE EXCESS 0.1 mmol/L (-2.0-3.0); ABG HCO3 23.9 mmol/L (21.0-28.0); ABG OXYGEN SATURATION 96.9 % (95.0-99.0); ABG PCO2 36 mmHg (32-45)
[2019-11-06] MEDS: GUAIFENESIN-DM 200/20 MG 10 ML PO PRN (20:58)
--- NOTE | 2019-11-06 21:00 | NUR ---
PAIN PT CALLS FOR PAIN MEDICATION, CLAIMS OF LEG PAINS. MEDICATED WITH GUAIFENESIN FOR COUGH AND TRAMADOL FOR PAINS. PT ACCIDENTALLY SPILLED JUICE ON HERSELF. PCP IN AND CHANGED PT'S WET GOWN AND LINEN. PT AGREED TO [facility]HE IN AM. ENCOURAGED TO REST AND SLEEP. WILL RE-ASSESS PT.
--- NOTE | 2019-11-06 21:40 | NUR ---
SON PT'S SON NIDHI, CALLED AND VERBALIZES FRUSTRATION THAT NO DOCTOR HAD CALLED HIM BACK TO LET HIM KNOW PT'S CONDITION. EXPLAINED TO PT THAT NO DOCTOR IS IN THE HOSPITAL AT THIS TIME TO TALK TO HIM BUT WILL PASS ON MESSAGE TO NURSE IN THE AM TO LET MD KNOW OF HIS NEED TO TALK WITH THEM. FAMILY GOT PACIFIED AT THIS TIME. WILL ENDORSE FAMILY REQUEST TO AM NURSE. NOTE PLACED IN CHART.
[2019-11-06 23:42] VITALS: BP 144/68
[2019-11-07] VITALS (7 sets, daily range): BP systolic 96–131; BP diastolic 42–70
[2019-11-07] MEDS: IPRATROPIUM/ALBUTEROL SULFATE 3 ML SOLUTION IH SCH ×2 (01:23→06:51)
--- NOTE | 2019-11-07 01:40 | NUR ---
ROUNDS PT RESTING WELL, FAIRLY ASLEEP. NO DISTRESS NOTED. KEPT UNDISTURBED FOR NOW. WILL MONITOR PT.
[2019-11-07] MEDS: VANCOMYCIN 1GM+NS 250ML 250 ML IV SCH (05:21)
[2019-11-07] MEDS: GUAIFENESIN-DM 200/20 MG 10 ML PO PRN (05:21)
[2019-11-07] MEDS: TRAMADOL HCL 50 MG TABLET PO PRN (05:22)
[2019-11-07] MEDS: LEVOTHYROXINE 75 MCG TABLET PO SCH (05:22)
--- NOTE | 2019-11-07 05:22 | NUR ---
PAIN PT COMPLAINTS OF BLE PAINS. DUE MEDS ADMINISTERED, TRAMADOL PO GIVEN FOR PAINS. KEPT COMFORTABLE IN BED. WILL RE-ASSESS PT.
--- NOTE | 2019-11-07 05:45 | NUR ---
BATHE PCP IN AND GAVE PT A BED BATH, TOLERATED ACTIVITY WELL.
[2019-11-07 06:06] LABS: BASOPHILS % (AUTO) 0.1 % (0.0-5.0); HEMATOCRIT 36.8 % (36-48); LYMPHOCYTES % (AUTO) 2.8 % (21.0-51.0); MEAN CORPUSCULAR HEMOGLOBIN 28.4 pg (27.0-33.0); MEAN CORPUSCULAR VOLUME 91.8 fL (79-99); MONOCYTES % (AUTO) 5.5 % (3.0-13.0); NEUTROPHILS % (AUTO) 89.8 % (40.0-77.0); PLATELET COUNT (AUTO) 356 K/uL (130-400); RED BLOOD CELL COUNT(AUTO) 4.01 MIL/uL (4.00-5.50); WHITE BLOOD COUNT (AUTO) 26.9 K/uL (4.8-10.8)
[2019-11-07 06:27] LABS: CREATININE 0.8 mg/dL (0.5-1.5); POTASSIUM 4.5 mmol/L (3.5-5.1)
[2019-11-07] MEDS: SUCRALFATE 1 GM/10 ML PO SCH ×3 (06:39→18:35)
[2019-11-07] MEDS: BUDESONIDE 0.5 MG/2 ML INH IH SCH ×2 (06:51→18:40)
[2019-11-07] MEDS: METHYLPREDNISOLONE SOD SUCC 40MG/ML 1ML IVP SCH ×2 (08:21→20:50)
[2019-11-07] MEDS: METOPROLOL TARTRATE 1 MG/ML 5ML VIAL IV PRN (08:21)
[2019-11-07] MEDS: FAMOTIDINE 20MG TAB 20 MG TAB PO SCH ×2 (08:21→20:50)
[2019-11-07] MEDS: ZINC SULFATE 220 CAPSULE PO SCH (08:22)
[2019-11-07] MEDS: SENNOSIDES 8.6 MG TABLET PO SCH (08:22)
[2019-11-07] MEDS: FUROSEMIDE 20 MG TABLET PO SCH (08:22)
[2019-11-07] MEDS: SPIRONOLACTONE 25 MG TAB PO SCH (08:22)
[2019-11-07] MEDS: NIACINAMIDE TP SCH ×2 (08:51→21:00)
[2019-11-07] MEDS: FLUOCINOLONE TP SCH ×2 (08:51→21:00)
[2019-11-07] MEDS: MELATONIN PO SCH (08:52)
[2019-11-07] MEDS: PYRIDOXINE HCL PO SCH (08:52)
[2019-11-07] MEDS: AREDS FORMULA PO SCH ×2 (08:52→21:00)
[2019-11-07] MEDS: METOPROLOL TARTRATE 25 MG TAB PO SCH ×2 (09:00→20:50)
--- NOTE | 2019-11-07 09:00 | NUR ---
DR. QUINTERO AWARE OF AFIB RVR STATES GIVE PRN DOSE OF METOPROLOL 5MG AND CONSULT CARDIO GAONA.
--- NOTE | 2019-11-07 09:00 | NUR ---
AFIB RVR V/S 103/68 BP, HR 140 AAOX3.
--- NOTE | 2019-11-07 09:09 | NUR ---
AFIB RVR METOPROLOL IV 5MG GIVEN VS BP 170/106, 140, AAOX3. Addendum: 11/07/19 at 0910 by ADITHYA CALDWELL RN RN THIS ADMINISTRATION WAS GIVEN AT 0905
--- NOTE | 2019-11-07 09:09 | NUR ---
AFIB 100 AAOX3, 103/60, HR 91-100'S
--- NOTE | 2019-11-07 09:11 | NUR ---
CARDIOLOGY DR. GAONA PAGED RE; AFIB RVR 160 PENDING CALL BACK.
[2019-11-07] MEDS: IPRATROPIUM 0.5 MG/2.5 ML INH IH SCH ×3 (11:50→21:10)
--- NOTE | 2019-11-07 13:44 | NUR ---
CATHLEEN Note: [facility] pending reacceptance CM spoke to Mushtaq Krause, received updated clinicals. Pt pending reacceptance at this time. Primary nurse aware. CM to cont to follow up.
--- NOTE | 2019-11-07 16:09 | NUR ---
CM Note: Veranda reacceptance CM spoke to Laura Krause, pt has reacceptance. EMS arranged and faxed for tomorrow, primary nurse to call [facility] once pt ready to DC. Primary nurse aware. CM to cont to follow up.
--- NOTE | 2019-11-07 17:53 | NUR ---
DR. RITU DAVIDSON TALKED TO SON RE; LUNG MASS SON STATES NO NEED FOR BRONCHO, SINCE SHE IS 84 YEARS OLD BUT THEY AGREED TO FOLLOW UP BY DOING A CT OF CHEST IN 3-6 WEEKS. Addendum: 11/07/19 at 1757 by ADITHYA CALDWELL RN RN EV TERRELL
[2019-11-07] MEDS: LEVOFLOXACIN 500 MG/D5W 100 ML 100 ML IV SCH (18:35)
[2019-11-07] MEDS: OSELTAMIVIR PHOSPHATE 75 MG CAP PO SCH (18:35)
[2019-11-07] MEDS: ATORVASTATIN CALCIUM 40 MG TABLET PO SCH (20:50)
[2019-11-07] MEDS: APIXABAN 2.5 MG TABLET PO SCH (20:50)
[2019-11-08 00:13] VITALS: BP 116/64
[2019-11-08] MEDS: TRAMADOL HCL 50 MG TABLET PO PRN ×5 (01:15→20:26)
[2019-11-08] MEDS: IPRATROPIUM 0.5 MG/2.5 ML INH IH SCH ×6 (02:43→22:10)
[2019-11-08 04:56] VITALS: BP 109/57
[2019-11-08] MEDS: VANCOMYCIN 1GM+NS 250ML 250 ML IV SCH (05:17)
[2019-11-08] MEDS: LEVOTHYROXINE 75 MCG TABLET PO SCH (05:18)
[2019-11-08] MEDS: SUCRALFATE 1 GM/10 ML PO SCH ×3 (05:18→16:40)
[2019-11-08 05:24] LABS: HEMATOCRIT 37.3 % (36-48); LYMPHOCYTES % (AUTO) 3.7 % (21.0-51.0); MEAN CORPUSCULAR HEMOGLOBIN 28.2 pg (27.0-33.0); MEAN CORPUSCULAR HGB CONC 31.1 g/dL (32.0-36.0); MEAN CORPUSCULAR VOLUME 90.8 fL (79-99); MONOCYTES % (AUTO) 2.3 % (3.0-13.0); NEUTROPHILS % (AUTO) 91.9 % (40.0-77.0); PLATELET COUNT (AUTO) 352 K/uL (130-400); RED BLOOD CELL COUNT(AUTO) 4.11 MIL/uL (4.00-5.50); RED CELL DISTRIBUTION WIDTH 15.3 % (11.0-15.5); WHITE BLOOD COUNT (AUTO) 20.5 K/uL (4.8-10.8)
[2019-11-08 05:49] LABS: MAGNESIUM 2.1 mg/dL (1.80-2.40); POTASSIUM 4.6 mmol/L (3.5-5.1)
[2019-11-08] MEDS: BUDESONIDE 0.5 MG/2 ML INH IH SCH ×2 (07:23→18:43)
[2019-11-08 07:30] VITALS: BP 117/63
[2019-11-08] MEDS: FAMOTIDINE 20MG TAB 20 MG TAB PO SCH ×2 (09:00→21:00)
[2019-11-08] MEDS: FLUOCINOLONE TP SCH ×2 (09:00→21:00)
[2019-11-08] MEDS: PYRIDOXINE HCL PO SCH (09:00)
[2019-11-08] MEDS: AREDS FORMULA PO SCH ×2 (09:00→21:00)
[2019-11-08] MEDS: NIACINAMIDE TP SCH ×2 (09:00→21:00)
[2019-11-08] MEDS: MELATONIN PO SCH (09:00)
[2019-11-08] MEDS: FUROSEMIDE 20 MG TABLET PO SCH (09:52)
[2019-11-08] MEDS: ZINC SULFATE 220 CAPSULE PO SCH (09:52)
[2019-11-08] MEDS: METOPROLOL SUCCINATE 50 MG TAB.SR.24H PO SCH (09:53)
[2019-11-08] MEDS: APIXABAN 2.5 MG TABLET PO SCH ×2 (09:53→20:31)
[2019-11-08] MEDS: SENNOSIDES 8.6 MG TABLET PO SCH (09:54)
[2019-11-08] MEDS: METHYLPREDNISOLONE SOD SUCC 40MG/ML 1ML IVP SCH (09:54)
[2019-11-08] MEDS: SPIRONOLACTONE 25 MG TAB PO SCH (09:54)
[2019-11-08] MEDS ORDERED: TRAMADOL HCL 50 MG TABLET PO SCH (10:15)
[2019-11-08 11:00] VITALS: BP 115/69
[2019-11-08 16:00] VITALS: BP 118/65
[2019-11-08] MEDS: LEVOFLOXACIN 500 MG/D5W 100 ML 100 ML IV SCH (16:40)
[2019-11-08] MEDS: OSELTAMIVIR PHOSPHATE 75 MG CAP PO SCH (16:40)
[2019-11-08] MEDS ORDERED: PREDNISONE 20 MG TABLET PO SCH (19:55)
[2019-11-08] MEDS: ATORVASTATIN CALCIUM 40 MG TABLET PO SCH (20:25)
[2019-11-08 20:31] VITALS: BP 109/59
[2019-11-08] MEDS: SODIUM CHLORIDE 3% FOR INHALATION 4 ML/AMP VIAL.NEB IH SCH ×2 (22:10→22:11)
--- NOTE | 2019-11-09 | NUR ---
PENDING FOR THE PHARMACY TO CLARIFY REGARDING THE PREDNISONE TABLET IT HAS BEEN ORDERED BUT CANNOT BE PULLED OUT FROM THE OMNICELL.
[2019-11-09 00:34] VITALS: BP 116/60
[2019-11-09 00:37] LABS: CREATINE KINASE, TOTAL 28 U/L (21-232); MYOGLOBIN 38 ng/mL (10-92); TROPONIN I < 0.04 ng/mL (0.00-0.06)
--- NOTE | 2019-11-09 02:00 | NUR ---
patient refused the breathing treatment including NS inhalation that RT is about to give despite thorough explanation of its importance. pt O2 sat 94% maintained on O2 at 2 lpm, pt denied any SOB nor chest pain nor any other pain. maintained on fowlers position
[2019-11-09 04:24] VITALS: BP 95/57
[2019-11-09 05:06] LABS: BASOPHILS % (AUTO) 0.2 % (0.0-5.0); HEMATOCRIT 37.4 % (36-48); LYMPHOCYTES % (AUTO) 9.1 % (21.0-51.0); MEAN CORPUSCULAR HEMOGLOBIN 28.4 pg (27.0-33.0); MEAN CORPUSCULAR VOLUME 91.4 fL (79-99); MONOCYTES % (AUTO) 7.9 % (3.0-13.0); NEUTROPHILS % (AUTO) 79.8 % (40.0-77.0); PLATELET COUNT (AUTO) 355 K/uL (130-400); RED BLOOD CELL COUNT(AUTO) 4.09 MIL/uL (4.00-5.50); RED CELL DISTRIBUTION WIDTH 15.4 % (11.0-15.5)
[2019-11-09 05:19] LABS: CREATININE 0.9 mg/dL (0.5-1.5); POTASSIUM 4.8 mmol/L (3.5-5.1)
[2019-11-09] MEDS: BUDESONIDE 0.5 MG/2 ML INH IH SCH ×3 (06:00→18:34)
[2019-11-09] MEDS: IPRATROPIUM 0.5 MG/2.5 ML INH IH SCH ×2 (06:00→06:25)
--- NOTE | 2019-11-09 06:14 | NUR ---
spoke with love from pharmacy, requested for prenisone PO per MD's order, he said he will send it . pending
[2019-11-09] MEDS: SODIUM CHLORIDE 3% FOR INHALATION 4 ML/AMP VIAL.NEB IH SCH ×6 (06:25→22:03)
[2019-11-09] MEDS ORDERED: PHARMACY COMMUNICATION MISC SCH ×2 (06:45)
[2019-11-09] MEDS ORDERED: PREDNISONE 20 MG TABLET PO SCH (06:45)
[2019-11-09] MEDS: LEVOTHYROXINE 75 MCG TABLET PO SCH (06:46)
[2019-11-09] MEDS: VANCOMYCIN 1GM+NS 250ML 250 ML IV SCH (06:46)
[2019-11-09] MEDS: SUCRALFATE 1 GM/10 ML PO SCH ×3 (06:46→15:32)
[2019-11-09 07:30] VITALS: BP 109/57
--- NOTE | 2019-11-09 08:16 | NUR ---
MD GAONA CAME AND SAID HE IS OK TO HAVE ALBUTEROL DESPITE HAVING THE A FIB RVR EPISODE OF THE PATIENT IT WILL ONLY OCCUR FOR APPROXIMATELY 30- MIN LONG IT IS NOT SUSTAINING PT DOES NOT WANT THE CURRENT TREATMENT THAT SHE IS ON RIGHT NOW. REFUSAL CONSENT SIGNED. INFORMED KAMRAN HAJI ABOUT IT DAYSHIFT
[2019-11-09] MEDS: RANITIDINE HCL 15 MG/1 ML PO SCH ×2 (08:44→20:30)
[2019-11-09] MEDS: ZINC SULFATE 220 CAPSULE PO SCH (08:44)
[2019-11-09] MEDS: FUROSEMIDE 20 MG TABLET PO SCH (08:45)
[2019-11-09] MEDS: METOPROLOL SUCCINATE 50 MG TAB.SR.24H PO SCH (08:47)
[2019-11-09] MEDS: SENNOSIDES 8.6 MG TABLET PO SCH (08:47)
[2019-11-09] MEDS: SPIRONOLACTONE 25 MG TAB PO SCH (08:47)
[2019-11-09] MEDS: AREDS FORMULA PO SCH ×2 (08:52→20:36)
[2019-11-09] MEDS: FLUOCINOLONE TP SCH ×2 (08:52→20:36)
[2019-11-09] MEDS: NIACINAMIDE TP SCH ×2 (08:52→20:36)
[2019-11-09] MEDS: MELATONIN PO SCH (08:52)
[2019-11-09] MEDS: PYRIDOXINE HCL PO SCH (08:52)
[2019-11-09] MEDS ORDERED: IPRATROPIUM/ALBUTEROL SULFATE 3 ML SOLUTION IH ONE (10:50)
[2019-11-09] MEDS: APIXABAN 2.5 MG TABLET PO SCH ×2 (10:56→20:30)
[2019-11-09 11:00] VITALS: BP 107/41
[2019-11-09] MEDS: IPRATROPIUM/ALBUTEROL SULFATE 3 ML SOLUTION IH SCH ×4 (11:00→22:03)
--- NOTE | 2019-11-09 11:02 | NUR ---
Nutrition Follow-up: Pt. on Heart healthy diet with Vanilla Ensure BID. Pt. reports eating </=50% of her meals; tolerating Ensure supp. Pt. reports difficulty chewing due to has dentures and requesting soft/chopped food. Labs reviewed(Alb 1.9). LBM: 11/06/2019. Recommendations: 1) Rec. Heart Healthy [facility] Soft Finely Chopped diet. 2) Continue to monitor pt's nutritional status. 3) Consult RD as nutrition concerns arise. Addendum: 11/09/19 at [address] Amended: Links added.
[2019-11-09] MEDS ORDERED: IPRATROPIUM/ALBUTEROL SULFATE 3 ML SOLUTION IH SCH (14:00)
[2019-11-09] MEDS: OSELTAMIVIR PHOSPHATE 75 MG CAP PO SCH (15:32)
[2019-11-09] MEDS: LEVOFLOXACIN 500 MG/D5W 100 ML 100 ML IV SCH (15:35)
[2019-11-09 16:00] VITALS: BP 91/46
[2019-11-09] MEDS: ATORVASTATIN CALCIUM 40 MG TABLET PO SCH (20:30)
[2019-11-09 21:17] VITALS: BP 128/74
[2019-11-09] MEDS: TRAMADOL HCL 50 MG TABLET PO PRN (21:57)
[2019-11-10] VITALS (7 sets, daily range): BP systolic 91–124; BP diastolic 45–77
[2019-11-10] MEDS: SIMETHICONE 80 MG TAB.CHEW PO SCH (00:38)
[2019-11-10] MEDS: IPRATROPIUM/ALBUTEROL SULFATE 3 ML SOLUTION IH SCH ×6 (01:21→21:18)
[2019-11-10] MEDS: SODIUM CHLORIDE 3% FOR INHALATION 4 ML/AMP VIAL.NEB IH SCH ×5 (01:21→21:19)
[2019-11-10] MEDS: BUDESONIDE 0.5 MG/2 ML INH IH SCH ×2 (05:20→17:07)
[2019-11-10] MEDS: VANCOMYCIN 1GM+NS 250ML 250 ML IV SCH (06:15)
[2019-11-10] MEDS: LEVOTHYROXINE 75 MCG TABLET PO SCH (06:16)
[2019-11-10] MEDS: SUCRALFATE 1 GM/10 ML PO SCH ×3 (06:52→17:07)
[2019-11-10] MEDS: PYRIDOXINE HCL PO SCH (09:00)
[2019-11-10] MEDS: FLUOCINOLONE TP SCH ×2 (09:00→21:00)
[2019-11-10] MEDS: NIACINAMIDE TP SCH ×2 (09:00→21:00)
[2019-11-10] MEDS: MELATONIN PO SCH (09:00)
[2019-11-10] MEDS: AREDS FORMULA PO SCH ×2 (09:00→21:00)
[2019-11-10] MEDS: APIXABAN 2.5 MG TABLET PO SCH ×2 (10:20→23:33)
[2019-11-10] MEDS: RANITIDINE HCL 15 MG/1 ML PO SCH ×2 (10:21→23:33)
[2019-11-10] MEDS: SPIRONOLACTONE 25 MG TAB PO SCH (10:21)
[2019-11-10] MEDS: METOPROLOL SUCCINATE 50 MG TAB.SR.24H PO SCH (10:21)
[2019-11-10] MEDS: FUROSEMIDE 20 MG TABLET PO SCH (10:21)
[2019-11-10] MEDS: ZINC SULFATE 220 CAPSULE PO SCH (10:21)
[2019-11-10] MEDS: SENNOSIDES 8.6 MG TABLET PO SCH (10:21)
[2019-11-10] MEDS: OSELTAMIVIR PHOSPHATE 75 MG CAP PO SCH (17:07)
[2019-11-10] MEDS: LEVOFLOXACIN 500 MG/D5W 100 ML 100 ML IV SCH (17:07)
[2019-11-10] MEDS: METOPROLOL TARTRATE 1 MG/ML 5ML VIAL IV PRN (18:43)
[2019-11-10] MEDS: ATORVASTATIN CALCIUM 40 MG TABLET PO SCH (23:33)
[2019-11-10] MEDS: TRAMADOL HCL 50 MG TABLET PO PRN (23:34)
[2019-11-11] MEDS: SIMETHICONE 80 MG TAB.CHEW PO SCH (00:56)
[2019-11-11] MEDS: ACETAMINOPHEN 325 MG TAB PO PRN (01:05)
[2019-11-11] MEDS: IPRATROPIUM/ALBUTEROL SULFATE 3 ML SOLUTION IH SCH ×6 (01:08→21:31)
[2019-11-11] MEDS: SODIUM CHLORIDE 3% FOR INHALATION 4 ML/AMP VIAL.NEB IH SCH ×5 (01:09→21:31)
[2019-11-11 03:40] VITALS: BP 120/56
[2019-11-11] MEDS: BUDESONIDE 0.5 MG/2 ML INH IH SCH ×2 (04:46→18:34)
[2019-11-11 06:01] LABS: BASOPHILS % (AUTO) 0.3 % (0.0-5.0); EOSINOPHILS % (AUTO) 1.1 % (0.0-8.0); HEMATOCRIT 40.2 % (36-48); LYMPHOCYTES % (AUTO) 12.5 % (21.0-51.0); MEAN CORPUSCULAR HEMOGLOBIN 28.2 pg (27.0-33.0); MEAN CORPUSCULAR HGB CONC 30.6 g/dL (32.0-36.0); MEAN CORPUSCULAR VOLUME 92.2 fL (79-99); MONOCYTES % (AUTO) 8.4 % (3.0-13.0); NEUTROPHILS % (AUTO) 74.6 % (40.0-77.0); PLATELET COUNT (AUTO) 315 K/uL (130-400); RED BLOOD CELL COUNT(AUTO) 4.36 MIL/uL (4.00-5.50); RED CELL DISTRIBUTION WIDTH 15.6 % (11.0-15.5); WHITE BLOOD COUNT (AUTO) 17.7 K/uL (4.8-10.8)
[2019-11-11 06:15] LABS: CREATININE 0.8 mg/dL (0.5-1.5); MAGNESIUM 2.2 mg/dL (1.80-2.40); POTASSIUM 4.2 mmol/L (3.5-5.1)
[2019-11-11] MEDS: LEVOTHYROXINE 75 MCG TABLET PO SCH (06:34)
[2019-11-11] MEDS: SUCRALFATE 1 GM/10 ML PO SCH ×3 (06:34→17:25)
[2019-11-11] MEDS: TRAMADOL HCL 50 MG TABLET PO PRN ×2 (07:18→11:49)
[2019-11-11 08:00] VITALS: BP 98/58
[2019-11-11] MEDS: PYRIDOXINE HCL PO SCH (09:00)
[2019-11-11] MEDS: NIACINAMIDE TP SCH ×2 (09:00→21:00)
[2019-11-11] MEDS: AREDS FORMULA PO SCH ×2 (09:00→21:00)
[2019-11-11] MEDS: MELATONIN PO SCH (09:00)
[2019-11-11] MEDS: FLUOCINOLONE TP SCH ×2 (09:00→21:00)
[2019-11-11] MEDS: SPIRONOLACTONE 25 MG TAB PO SCH (09:50)
[2019-11-11] MEDS: SENNOSIDES 8.6 MG TABLET PO SCH (09:51)
[2019-11-11] MEDS: METOPROLOL SUCCINATE 50 MG TAB.SR.24H PO SCH (09:51)
[2019-11-11] MEDS: APIXABAN 2.5 MG TABLET PO SCH ×2 (09:51→22:53)
[2019-11-11] MEDS: RANITIDINE HCL 15 MG/1 ML PO SCH ×2 (09:51→22:53)
[2019-11-11] MEDS: FUROSEMIDE 20 MG TABLET PO SCH (09:51)
[2019-11-11] MEDS: ZINC SULFATE 220 CAPSULE PO SCH (09:51)
[2019-11-11] MEDS: VANCOMYCIN 1GM+NS 250ML 250 ML IV SCH (09:52)
[2019-11-11 11:25] VITALS: BP 108/60
[2019-11-11 16:00] VITALS: BP 111/59
[2019-11-11] MEDS: OSELTAMIVIR PHOSPHATE 75 MG CAP PO SCH (16:28)
[2019-11-11] MEDS: LEVOFLOXACIN 500 MG/D5W 100 ML 100 ML IV SCH (16:28)
[2019-11-11 19:44] VITALS: BP 115/61
[2019-11-11] MEDS: ATORVASTATIN CALCIUM 40 MG TABLET PO SCH (22:53)
[2019-11-12 00:23] VITALS: BP 109/68
[2019-11-12] MEDS: SIMETHICONE 80 MG TAB.CHEW PO SCH (00:30)
[2019-11-12] MEDS: IPRATROPIUM/ALBUTEROL SULFATE 3 ML SOLUTION IH SCH ×4 (01:07→14:45)
[2019-11-12] MEDS: SODIUM CHLORIDE 3% FOR INHALATION 4 ML/AMP VIAL.NEB IH SCH ×4 (01:07→14:46)
[2019-11-12 03:48] VITALS: BP 110/60
[2019-11-12] MEDS: BUDESONIDE 0.5 MG/2 ML INH IH SCH (05:29)
[2019-11-12] MEDS: LEVOTHYROXINE 75 MCG TABLET PO SCH (06:24)
[2019-11-12] MEDS: VANCOMYCIN 1GM+NS 250ML 250 ML IV SCH (06:24)
[2019-11-12] MEDS: SUCRALFATE 1 GM/10 ML PO SCH (07:30)
[2019-11-12 07:39] VITALS: BP 125/66
[2019-11-12] MEDS ORDERED: SUCRALFATE 1 GM TABLET PO SCH (08:44)
[2019-11-12] MEDS: PYRIDOXINE HCL PO SCH (09:00)
[2019-11-12] MEDS: FLUOCINOLONE TP SCH (09:00)
[2019-11-12] MEDS: NIACINAMIDE TP SCH (09:00)
[2019-11-12] MEDS: MELATONIN PO SCH (09:00)
[2019-11-12] MEDS: AREDS FORMULA PO SCH (09:00)
[2019-11-12] MEDS ORDERED: PREDNISONE 20 MG TABLET PO SCH (09:00)
[2019-11-12] MEDS: METOPROLOL SUCCINATE 50 MG TAB.SR.24H PO SCH (09:50)
[2019-11-12] MEDS: SPIRONOLACTONE 25 MG TAB PO SCH (09:51)
[2019-11-12] MEDS: APIXABAN 2.5 MG TABLET PO SCH (09:51)
[2019-11-12] MEDS: RANITIDINE HCL 15 MG/1 ML PO SCH (09:51)
[2019-11-12] MEDS: ZINC SULFATE 220 CAPSULE PO SCH (09:51)
[2019-11-12] MEDS: SENNOSIDES 8.6 MG TABLET PO SCH (09:51)
[2019-11-12] MEDS: FUROSEMIDE 20 MG TABLET PO SCH (09:51)
[2019-11-12 11:30] VITALS: BP 119/66
--- NOTE | 2019-11-12 14:00 | NUR ---
report attempted to call jaimie .. on hold, no answer. will attempt in few
--- NOTE | 2019-11-12 14:30 | NUR ---
report call to give report for second time. [facility] nurse states she will call back when off the phone as she is getting report for another patient.
== END 2019-11-12 16:35 | DRG 193 ==
LOC: EDH 13:17 → EDHIP 16:34 → 3DH 19:19
PROVIDERS: ADMIT Family Medicine; ATTEND Family Medicine
DX: J18.9 Pneumonia, unspecified organism (principal); E43 Unspecified severe protein-calorie malnutrition; J96.21 Acute and chronic respiratory failure with hypoxia; J44.0 Chronic obstructive pulmonary disease with (acute) lower respiratory infection; I50.22 Chronic systolic (congestive) heart failure; J44.1 Chronic obstructive pulmonary disease with (acute) exacerbation; I48.20 Chronic atrial fibrillation, unspecified; E03.9 Hypothyroidism, unspecified; E78.5 Hyperlipidemia, unspecified; I11.0 Hypertensive heart disease with heart failure; I25.5 Ischemic cardiomyopathy; I73.9 Peripheral vascular disease, unspecified; Y95 Nosocomial condition; F17.200 Nicotine dependence, unspecified, uncomplicated; F41.9 Anxiety disorder, unspecified; G89.29 Other chronic pain; Z91.011 Allergy to milk products; I25.2 Old myocardial infarction; Z90.710 Acquired absence of both cervix and uterus; Z88.0 Allergy status to penicillin; Z88.8 Allergy status to other drugs, medicaments and biological substances; Z91.018 Allergy to other foods; Z99.81 Dependence on supplemental oxygen; Z68.23 Body mass index [BMI] 23.0-23.9, adult; Z79.01 Long term (current) use of anticoagulants; Z79.51 Long term (current) use of inhaled steroids; Z79.899 Other long term (current) drug therapy; Z82.49 Family history of ischemic heart disease and other diseases of the circulatory system
CPT/HCPCS: 36415; 36600; 71045; 71250; 73590; 73620; 80048; 80053; 80202; 82550; 82803; 83605; 83735; 83874; 83880; 84132; 84145; 84484; 85025; 86140; 87040; 87071; 87205; 87449; 87486; 87581; 87633; 87798; 87804; 93005; 94640; 94664; 94667; 94668; 97039; A6453; G0378; J1956; J2920; J3370; J3490